=== PATIENT | male | born 1985 | race Caucasian/White ===

== ENCOUNTER 2018-06-02 14:03 | Outpatient (CLI) | payer OTHER, SELFPAY ==
--- NOTE | 2018-06-04 13:30 | ONE_ITS ---
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 ASSESSMENT Lumbar pain, radicular pattern. Evaluation to date includes - MRI, which does not show clear signs of root impingement at any level. There are some small bulges at multiple levels however. He also underwent a bone scan, which showed some uptake at the SI joints, which could be consistent with sacroiliitis. His nurse case fitter present today tells me that Rheumatology was consulted and they found this discomfort not to be consistent with a rheumatologic underlying condition. Further evaluation by Eddie Sims, who is a PA, at [facility], done the 14 of May, concurs that the MRI is not supportive of his degree and pattern of discomfort. He does raise a question of a mild chemical radiculopathy , which would be consistent with possible small annular tear. Recommendations however, were for conservative management. PLAN Recommendations by [facility] did include functional restorative program, ongoing PT, which was just resumed after several months of hiatus. He discusses the possibility of an FCE, and he plans to see him in followup after six weeks of PT. The patient himself is not satisfied with this approach. He asks for further intervention for his pain. We discussed several options, which were not satisfactory to him, but ultimately he agreed to a trial of gabapentin, this was prescribed at 300 mg at bedtime for the next three nights. He would then increase to 600 for three nights and then to a full 900 at bedtime thereafter. I will see him back for further evaluation on this. I also prescribed a TENS unit. He will continue PT three times weekly, currently in the pool. Continue ibuprofen and Tylenol as above. We discussed the possible use of a patch, but he declined that at this time as well. He would like to know what the next plan of action is. I did provide him information on benefits of functional restorative. He is given the education material associated with that program at this time for his consideration. Will need to obtain a Rheumatology consult for completeness of information. Would also consider referral to [facility]. I will see him back on June 17, 2018 for followup. Greater than 50% of this visit was spent in planning and coordination of care. HISTORY OF PRESENT ILLNESS Mr. Bustillo comes in today for evaluation of low back pain, which began suddenly on November 02 of this year. He explained he was just starting his workday when the inciting event occurred. 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 The box was on the floor and he lifted it to waist level. As he did so, he felt an instant central lumbar pain and also heard an audible pop. He said this felt like an explosion. He was able to walk out of the cooler, but pain did radiate down the back of both legs, worse on the right all the way to his toes. He explains that he had to hold onto the greenwood of the cooler so he would not fall. He describes what he believes to be intense spasms. He tried to walk off the discomfort, but could not. He reported the incident to his employer and was sent to [facility] in [place] for evaluation. He was treated with antiinflammatory medications, tramadol and cyclobenzaprine, none of which he found to be very helpful and the tramadol in fact caused headaches. An urgent MRI was obtained as there was concern that there may be a large central disk herniation with subsequent risk of cauda equina syndrome. He was also treated with a prednisone taper, and amitriptyline 25 mg at bedtime. The patient states today that he could not tolerate the amitriptyline due to side effects of sedation. Likewise, he did not find the prednisone taper to be beneficial. He did attend some physical therapy through [facility] and he was returned to work with limitations , but could not peform more than a few days. He continued to get physical therapy and was tried again to return to work a second time, but again could not tolerate it. Therefore, he has been out of work since October. He and his family moved from the [place] area to [place] to be near family so they would help with their young children. He had difficulty continuing physical therapy in [place] once he moved to [place]. He also awaited referrals to both rheumatology and the [facility] in [place], those have since both taken place. He is accompanied today by his nurse case fitter, and they tell me that he has just re-started physical therapy through [facility] where he is receiving pool therapy. Today, Mr. Bustillo says the pain is unchanged. He expresses great frustration at that. He says he has great difficulty sleeping due to pain. He says he falls asleep, but awakens at least every two hours whether in a recliner, or in bed. He quantifies his pain at 6/10 when it is the best, but it increases steadily throughout the day and night. It is translumbar pain worse on the right, radiating all the way down his leg to the toes. He described posterior pain in the right thigh as burning pain, but numbness in the right calf. Pain is worsened by all movements. He is using ibuprofen 600 mg every 8 hours and Tylenol 1000 mg t.i.d. neither of which he finds to be very helpful. REVIEW OF SYSTEMS He does have occasional shortness of breath related to asthma. No chest pain or palpitations reported. No loss of bladder or bowel control. No abdominal pain, nausea, vomiting or GI complaints. Tingling in the left calf as above. PAST MEDICAL HISTORY Asthma since childhood. Right wrist surgery in 2012. CURRENT MEDICATIONS Brio inhaler daily. He has an Albuterol inhaler for rescue, which he uses approximately once per week. He uses the ibuprofen 600 q. 8h as above. Tylenol 1000 t.i.d. as above. ALLERGIES He is allergic to codeine. SOCIAL HISTORY He is with children. His currently also recovering from an unspecified injury. HABITS Does not drink. No tobacco use. Does admit to smoking pot daily. OBJECTIVE GENERAL - This is a 32-year-old male who is alert, cooperative, clearly distressed. Posture is stooped, slouched. He ambulates slowly. Very guarded movements as he moves to and from the exam table, and as he ambulates down the amaya. VITAL SIGNS - Blood pressure 130/74. Pulse 84 and regular. He is 6 feet 1 inch tall. Weight is 215 pounds. HEENT - Head is normal. NECK - Neck is supple. CHEST - Heart regular rate and rhythm. LUNGS - Lungs are clear. ABDOMEN - Abdomen is soft, nontender. MUSCULOSKELETAL - There is no tenderness to direct palpation of the cervical spine. Mild tenderness in the distal thoracic, as well as the lumbar vertebrae. Some mild tenderness over the SI joint. DTR's, prepatellars are 1+ bilaterally. Achilles are 1+ bilaterally. Straight leg raises are very difficult for him to perform. He is able to extend each leg about 10 degrees. The left leg extension produces central lumbar discomfort. The right leg produces central and right- sided lumbar discomfort. Range of motion also very difficult. He can flex with fingertips reaching the tibial region. Right-sided lumbar pain is worse at that point in flexion. Extension very difficult for him to perform, but he does not seem to have the level of discomfort with extension that he did with flexion. Lateral bend also only a few degrees in each direction, also exacerbating his discomfort centrally. Rotation is also limited about 30 degrees in each direction. Everything aggravates his pain. He is not able to perform heel or toe walk due to pain. Sensory of lower extremities is intact.
== END 2018-06-02 14:04 ==
PROVIDERS: Visit Provider Nurse Practitioner Family
DX: M54.5 Low back pain (principal); M54.16 Radiculopathy, lumbar region; S39.012A Strain of muscle, fascia and tendon of lower back, initial encounter; X50.0XXA Overexertion from strenuous movement or load, initial encounter; Y99.0 Civilian activity done for income or pay
CPT/HCPCS: 99203

== ENCOUNTER 2018-06-17 08:07 | Outpatient (CLI) | payer OTHER, SELFPAY ==
--- NOTE | 2018-06-17 15:37 | ONE_ITS ---
DATE: June 17, 2018 Mr. Bustillo did not come in for his appointment which was scheduled this morning. His nurse case manag er has contacted him advising him to reschedule.
== END 2018-06-17 08:08 ==
PROVIDERS: Visit Provider Nurse Practitioner Family
DX: M54.5 Low back pain (principal); Z53.8 Procedure and treatment not carried out for other reasons

== ENCOUNTER → 2018-08-31 | Outpatient (CLI) | payer OTHER, SELFPAY ==
--- NOTE | 2018-08-31 06:00 | DI.RAD_ITS ---
SYMPTOMS/DIAGNOSIS: LUMBAR SPONDYLOSIS PAIN CLINIC LUMBAR SPINE: Fluoroscopy Time: 37.6 seconds/9.48 mGy Fluoroscopy was utilized by Dr. Smith during the performance of a lumbar medial branch block. Please refer to the procedure report for complete details.
[2018-08-31 09:50] VITALS: BP 138/81; PULSE 95; RESP 18; TEMP 37.6; O2SAT 100
[2018-08-31 10:41] VITALS: BP 132/77; PULSE 79; RESP 15; O2SAT 99
--- NOTE | 2018-08-31 10:41 | PDOC.PAIN ---
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 COMMENTS: LBP Patient was interviewed and the medical record reviewed. There were no medical, pharmacologic, radiographic or other structural contraindications to attempting fluoroscopically guided local anesthetic lumbar/sacral medial branch blocks. Risks and expected side effects as well as potential benefit of the procedure were reviewed and voiced concerns addressed. The printed consent form was signed and witnessed. Standard time-out procedure was performed. Patient was placed in the prone position on the fluoroscopy table and automated blood pressure cuff and pulse oximeter applied. The skin entry points for approaching the anatomic target points of the segmental medial branches of { bilateral L3,4,5} were identified with anfluoroscopy and marked. Following thorough Chlorhexadine preparation of the skin and draping and 1% lidocaine infiltration of the skin entry points and subcutaneous tissues, a 22 gauge spinal needle was placed under fluoroscopic guidance down on to the target point for each respective segmental medial branch.Position was confirmed in A/P, oblique and lateral views with 0.25ml of omnipaque 240. At each point .5ml 0.5% Bupivacaine was injected. Vital signs were stable throughout the procedure and were as recorded in the docflowsheet by the nursing staff. Follow up plans and appointments were discussed and was instructed to keep careful note of how the usual pain was modified by these injections. Specifically was asked to keep a pain diary for the next 24 hours using a numeric pain scale of 0-10 and report these results at the follow-up visit. Post procedure instruction was given as documented in the nursing documentation and having met discharge criteria. Patient was [facility] from the [facility]. Based on the medial branches blocked today, if the patient has adequate relief and we are able to proceed to radiofrequency ablation, the treatment should result in the denervation of the {bilateralL4-5,L5-S1 FACET JOINTS}. We would expect to denervate a total of {4} facets during the radiofrequency ablation. COMMENTS: pain went from / to 02/25. Pt planning on FRP at - If not meeting criteria for RF consider re-eval for SI joint inj. CC:
--- NOTE | 2018-08-31 10:46 | PDOC.PAIN_ITS ---
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 COMMENTS: LBP Patient was interviewed and the medical record reviewed. There were no medical , pharmacologic, radiographic or other structural contraindications to attempting fluoroscopically guided local anesthetic lumbar/sacral medial branch blocks. Risks and expected side effects as well as potential benefit of the procedure were reviewed and voiced concerns addressed. The printed consent form was signed and witnessed. Standard time-out procedure was performed. Patient was placed in the prone position on the fluoroscopy table and automated blood pressure cuff and pulse oximeter applied. The skin entry points for approaching the anatomic target points of the segmental medial branches of { bilateral L3,4,5} were identified with anfluoroscopy and marked. Following thorough Chlorhexadine preparation of the skin and draping and 1% lidocaine infiltration of the skin entry points and subcutaneous tissues, a 22 gauge spinal needle was placed under fluoroscopic guidance down on to the target point for each respective segmental medial branch.Position was confirmed in A/P, oblique and lateral views with 0.25ml of omnipaque 240. At each point .5ml 0.5% Bupivacaine was injected. Vital signs were stable throughout the procedure and were as recorded in the docflowsheet by the nursing staff. Follow up plans and appointments were discussed and was instructed to keep careful note of how the usual pain was modified by these injections. Specifically was asked to keep a pain diary for the next 24 hours using a numeric pain scale of 0-10 and report these results at the follow-up visit. Post procedure instruction was given as documented in the nursing documentation and having met discharge criteria. Patient was [facility] from the [facility]. Based on the medial branches blocked today, if the patient has adequate relief and we are able to proceed to radiofrequency ablation, the treatment should result in the denervation of the {bilateralL4-5,L5-S1 FACET JOINTS}. We would expect to denervate a total of {4} facets during the radiofrequency ablation. COMMENTS: pain went from / to 02/25. Pt planning on FRP at - If not meeting criteria for RF consider re-eval for SI joint inj. CC:
[2018-08-31] MEDS: Omnipaque 240 MG/ML 50 ML BTL IJ (10:57)
[2018-08-31] MEDS: Bupivacaine 0.5% Pres-Free 30 ML VIAL IJ (10:58)
== END ==
PROVIDERS: Visit Provider Anesthesiology Pain Medicine
DX: M54.5 Low back pain (principal); S39.012D Strain of muscle, fascia and tendon of lower back, subsequent encounter; X58.XXXD Exposure to other specified factors, subsequent encounter; G89.29 Other chronic pain
CPT/HCPCS: 64493; 64494; 64495; 72100; Q9967

== ENCOUNTER 2018-09-12 21:21 | Emergency (ER) | payer MEDICAID, SELFPAY ==
[2018-09-12 21:26] VITALS: BP 140/75; PULSE 111; RESP 24; TEMP 36.7; O2SAT 98
[2018-09-12 21:30] VITALS: RESP 24
--- NOTE | 2018-09-12 21:34 | W.ED.GENAD ---
Discharge Plan Disposition Patient Disposition: HOME Condition: Stable Discharge Details Chief Complaint: SOB Clinical Impression: Asthma exacerbation ED Provider: Mikey Reyes Home Meds and New Rx's Prescriptions: New prednisone 20 mg tablet 60 mg PO DAILY 4 Days Qty: 12 RF: 0 mometasone-formoterol [Dulera] 200-5 mcg/actuation HFA aerosol inhaler 2 puff IH BID Qty: 13 RF: 0 Continue omeprazole 20 mg capsule,delayed release(DR/EC) 20 mg PO DAILY Qty: 30 RF: 3 ibuprofen 600 mg tablet 600 mg PO Q6H PRNRF: 0 acetaminophen 500 mg capsule 1,000 mg PO Q6H PRNRF: 0 albuterol sulfate [Ventolin HFA] 60 PUFF/INH HFA aerosol inhaler 2 puff Inhalation Q4H PRNQty: 1 RF: 0 No Action mometasone-formoterol [Dulera] 100-5 mcg/actuation Hfa Aerosol Inhaler 2 puff Inhalation BID RF: 0 Discharge Instructions Instructions: Asthma (ED) Additional Instructions: IF you have worsening shortness of breath despite using your inhalers return to the emergency department Medical Decision Making 32 yo male with hx of asthma comes in with complaints of wheezing and shortness of breath for about a week. Denies chest pain or recent travel or immobilization. He states he has not had insurance so hasn't had inhalers recently. He has no fevers, dry cough. Has diffuse wheezing on exam consistent with asthma, will givfe steroids and nebulizers and reassess. Given well appearance and no fevers doubt pna and do not feel xray indicated. NO evidence of dvt or pleuritic chest pain and exam consistent with asthma exacerbation so doubt PE at this time pt feels much better after neb and steroids and has much improved lung sounds with only mild bilateral apical wheezing. Will send home with inhaler and spacer with albuterol and prescription for steroids. He states he was on dulera inhaler for controller and requests prescription for this which I will provide and will place him on direct care provider's list to see pcp within 2 weeks Differential Diagnosis asthma exacerbation, uri HPI General Mode of arrival: ambulatory. Date/Time Provider Initiated Documentation: 09/12/18 21:31. Limitations to Documentation: no limitations. Information obtained by: patient. History of Present Illness 32 year old M presents to the emergency department with the chief complaint of shortness of breath, described as moderate, with intensity rated at 4. Patient started experiencing this week(s) (1) and it has been constant. No relieving factors improve symptom(s), No exacerbating factors reported . Patient notes no other symptoms.. Patient did receive the following treatments prior to arrival, none Related Data Home Medications Medication Instructions Recorded Confirmed albuterol sulfate [Ventolin HFA] 2 puff INHALATION Q4H PRN #1 04/09/18 09/12/18 omeprazole 20 mg capsule,delayed 20 mg PO DAILY #30 cap 07/08/18 09/12/18 release acetaminophen 500 mg capsule 1,000 mg PO Q6H PRN cap 08/11/18 09/12/18 ibuprofen 600 mg tablet 600 mg PO Q6H PRN tab 08/11/18 09/12/18 mometasone-formoterol [Dulera] 2 puff IH BID #13 gm 09/12/18 mometasone-formoterol [Dulera] 2 puff INHALATION BID 09/12/18 09/12/18 prednisone 60 mg PO DAILY 4 Days #12 tab 09/12/18 Previous Rx's Medication Instructions Recorded albuterol sulfate [Ventolin HFA] 2 puff INHALATION Q4H PRN #1 04/09/18 omeprazole 20 mg capsule,delayed 20 mg PO DAILY #30 cap 07/08/18 release mometasone-formoterol [Dulera] 2 puff IH BID #13 gm 09/12/18 prednisone 60 mg PO DAILY 4 Days #12 tab 09/12/18 Allergies Allergy/AdvReac Type Severity Reaction Status Date / Time codeine Allergy Swelling/Ed Verified 09/12/18 21:28 [From Tylenol-Codeine #3] linda gabapentin AdvReac Intermediate Headaches Unverified 09/12/18 21:28 pregabalin [From Lyrica] AdvReac Intermediate Headaches Unverified 09/12/18 21:28 General Stated Complaint: SOB CHI: 3 Review of Systems Review of Systems All systems reviewed & are unremarkable except as noted in HPI and below Constitutional Denies chills, Denies fever(s) and Denies weakness Cardiovascular Denies chest pain Gastrointestinal Denies abdominal pain, Denies nausea and Denies vomiting Genitourinary Denies dysuria Musculoskeletal Denies joint swelling Integumentary/Breasts Denies rash Neurologic Denies weakness Psychiatric Denies depression Exam Const General: no acute distress Orientation: alert HENMT Head: normal to inspection Ears: external ears normal General nose exam: external nose normal Mouth: moist mucous membranes Eyes General: appearance normal, both eyes and all related structures Neck Neck: normal visual inspection Resp Effort & Inspection: normal respiratory effort, able to speak in complete sentences and audible wheezes Cardio Jugular venous pressure: no JVD Rate: tachycardic Rhythm: regular rhythm Heart Sounds: no murmurs Skin General skin exam: no rashes or lesions noted Neuro General: alert and oriented x3 Extrem General: normal to inspection Psych Mental Status: mental status grossly normal Course Vital Signs Temperature 36.7 C 09/12/18 21:26 Pulse 111 H 09/12/18 21:26 Respiratory Rate 24 09/12/18 21:26 Blood Pressure 140/75 09/12/18 21:26 Pulse Oximetry 98 09/12/18 21:26 Temperature 36.7 C 09/12/18 21:26 Temperature Source Temporal Artery Scan 09/12/18 21:26 Pulse 111 H 09/12/18 21:26 Respiratory Rate 24 09/12/18 21:30 Respiratory Effort 09/12/18 21:30 Respiratory Depth Normal 09/12/18 21:30 Respiratory Pattern Normal 09/12/18 21:30 Blood Pressure 140/75 09/12/18 21:26 Blood Pressure Position Sitting 09/12/18 21:26 Pulse Oximetry 98 09/12/18 21:26 Oxygen Delivery Method Room Air 09/12/18 21:26 Oxygen Flow Rate 0 09/12/18 21:26 Pain Level 4 09/12/18 21:26
--- NOTE | 2018-09-12 21:37 | ED.GENADUL_ITS ---
Discharge Plan Disposition Patient Disposition: HOME Condition: Stable Discharge Details Chief Complaint: SOB Clinical Impression: Asthma exacerbation ED Provider: Mikey Reyes Home Meds and New Rx's Prescriptions: New prednisone 20 mg tablet 60 mg PO DAILY 4 Days Qty: 12 RF: 0 mometasone-formoterol [Dulera] 200-5 mcg/actuation HFA aerosol inhaler 2 puff IH BID Qty: 13 RF: 0 Continue omeprazole 20 mg capsule,delayed release(DR/EC) 20 mg PO DAILY Qty: 30 RF: 3 ibuprofen 600 mg tablet 600 mg PO Q6H PRNRF: 0 acetaminophen 500 mg capsule 1,000 mg PO Q6H PRNRF: 0 albuterol sulfate [Ventolin HFA] 60 PUFF/INH HFA aerosol inhaler 2 puff Inhalation Q4H PRNQty: 1 RF: 0 No Action mometasone-formoterol [Dulera] 100-5 mcg/actuation Hfa Aerosol Inhaler 2 puff Inhalation BID RF: 0 Discharge Instructions Instructions: Asthma (ED) Additional Instructions: IF you have worsening shortness of breath despite using your inhalers return to the emergency department Medical Decision Making 32 yo male with hx of asthma comes in with complaints of wheezing and shortness of breath for about a week. Denies chest pain or recent travel or immobilization. He states he has not had insurance so hasn't had inhalers recently. He has no fevers, dry cough. Has diffuse wheezing on exam consistent with asthma, will givfe steroids and nebulizers and reassess. Given well appearance and no fevers doubt pna and do not feel xray indicated. NO evidence of dvt or pleuritic chest pain and exam consistent with asthma exacerbation so doubt PE at this time pt feels much better after neb and steroids and has much improved lung sounds with only mild bilateral apical wheezing. Will send home with inhaler and spacer with albuterol and prescription for steroids. 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 Date/Time Provider Initiated Documentation: 09/12/18 21:31 . Limitations to Documentation: no limitations . Information obtained by: patient . History of Present Illness 32 year old M presents to the emergency department with the chief complaint of shortness of breath, described as moderate, with intensity rated at 4. Patient started experiencing this week(s) (1) and it has been constant. No relieving factors improve symptom(s), No exacerbating factors reported . Patient notes no other symptoms.. Patient did receive the following treatments prior to arrival, none Related Data Home Medications Medication Instructions Recorded Confirmed albuterol sulfate [Ventolin HFA] 2 puff INHALATION Q4H PRN #1 04/09/18 09/12/18 omeprazole 20 mg capsule,delayed 20 mg PO DAILY #30 cap 07/08/18 09/12/18 release acetaminophen 500 mg capsule 1,000 mg PO Q6H PRN cap 08/11/18 09/12/18 ibuprofen 600 mg tablet 600 mg PO Q6H PRN tab 08/11/18 09/12/18 mometasone-formoterol [Dulera] 2 puff IH BID #13 gm 09/12/18 mometasone-formoterol [Dulera] 2 puff INHALATION BID 09/12/18 09/12/18 prednisone 60 mg PO DAILY 4 Days #12 tab 09/12/18 Previous Rx's Medication Instructions Recorded albuterol sulfate [Ventolin HFA] 2 puff INHALATION Q4H PRN #1 04/09/18 omeprazole 20 mg capsule,delayed 20 mg PO DAILY #30 cap 07/08/18 release mometasone-formoterol [Dulera] 2 puff IH BID #13 gm 09/12/18 prednisone 60 mg PO DAILY 4 Days #12 tab 09/12/18 Allergies Allergy/AdvReac Type Severity Reaction Status Date / Time codeine Allergy Swelling/Ed Verified 09/12/18 21:28 [From Tylenol-Codeine #3] linda gabapentin AdvReac Intermediate Headaches Unverified 09/12/18 21:28 pregabalin [From Lyrica] AdvReac Intermediate Headaches Unverified 09/12/18 21: 28 General Stated Complaint: SOB CHI: 3 Review of Systems Review of Systems All systems reviewed & are unremarkable except as noted in HPI and below Constitutional Denies chills, Denies fever(s) and Denies weakness Cardiovascular Denies chest pain Gastrointestinal Denies abdominal pain, Denies nausea and Denies vomiting Genitourinary Denies dysuria Musculoskeletal Denies joint swelling Integumentary/Breasts Denies rash Neurologic Denies weakness Psychiatric Denies depression Exam Const General: no acute distress Orientation: alert HENMT Head: normal to inspection Ears: external ears normal General nose exam: external nose normal Mouth: moist mucous membranes Eyes General: appearance normal, both eyes and all related structures Neck Neck: normal visual inspection Resp Effort & Inspection: normal respiratory effort, able to speak in complete sentences and audible wheezes Cardio Jugular venous pressure: no JVD Rate: tachycardic Rhythm: regular rhythm Heart Sounds: no murmurs Skin General skin exam: no rashes or lesions noted Neuro General: alert and oriented x3 Extrem General: normal to inspection Psych Mental Status: mental status grossly normal Course Vital Signs Temperature 36.7 C 09/12/18 21:26 Pulse 111 H 09/12/18 21:26 Respiratory Rate 24 09/12/18 21:26 Blood Pressure 140/75 09/12/18 21:26 Pulse Oximetry 98 09/12/18 21:26 Temperature 36.7 C 09/12/18 21:26 Temperature Source Temporal Artery Scan 09/12/18 21:26 Pulse 111 H 09/12/18 21:26 Respiratory Rate 24 09/12/18 21:30 Respiratory Effort 09/12/18 21:30 Respiratory Depth Normal 09/12/18 21:30 Respiratory Pattern Normal 09/12/18 21:30 Blood Pressure 140/75 09/12/18 21:26 Blood Pressure Position Sitting 09/12/18 21:26 Pulse Oximetry 98 09/12/18 21:26 Oxygen Delivery Method Room Air 09/12/18 21:26 Oxygen Flow Rate 0 09/12/18 21:26 Pain Level 4 09/12/18 21:26
[2018-09-12] MEDS: Albuterol/Ipratropium 3 ML UPD VIAL UPD (21:44)
[2018-09-12] MEDS: Albuterol 2.5 MG/3 ML INH SOLN VIAL UPD (21:44)
[2018-09-12] MEDS: predniSONE 20 MG TAB (21:45)
[2018-09-12 22:21] VITALS: BP 142/91; PULSE 127; RESP 24; O2SAT 99
[2018-09-12] MEDS: Albuterol HFA 8 GM 60 PUFF INH IH (22:21)
== END 2018-09-12 22:30 | disposition home or self-care (01) ==
PROVIDERS: Emergency Provider Emergency Medicine
DX: J45.901 Unspecified asthma with (acute) exacerbation (principal); R06.02 Shortness of breath
CPT/HCPCS: 94640; 99284; J7512; J7613; J7620

== ENCOUNTER 2018-09-24 18:16 | Emergency (ER) | payer MEDICAID, SELFPAY ==
[2018-09-24 18:20] VITALS: BP 140/73; PULSE 80; RESP 18; TEMP 36.8; O2SAT 98
--- NOTE | 2018-09-24 18:37 | W.ED.GENAD ---
Discharge Plan Disposition Patient Disposition: HOME Discharge Details Chief Complaint: SOB Clinical Impression: Acute asthma exacerbation, Bronchitis Primary Care Provider: Lon Garduno ED Provider: Eliazar Zhu Home Meds and New Rx's Prescriptions: New prednisone 20 mg tablet 40 mg PO DAILY Qty: 8 RF: 0 albuterol sulfate 90 mcg/actuation HFA aerosol inhaler 2 puff IH Q4H PRN (Reason: shortness of breath or wheezing) Qty: 8.5 RF: 0 doxycycline hyclate 100 mg tablet 100 mg PO BID Qty: 13 RF: 0 Continue omeprazole 20 mg capsule,delayed release(DR/EC) 20 mg PO DAILY Qty: 30 RF: 3 ibuprofen 600 mg tablet 600 mg PO Q6H PRNRF: 0 acetaminophen 500 mg capsule 1,000 mg PO Q6H PRNRF: 0 mometasone-formoterol [Dulera] 200-5 mcg/actuation HFA aerosol inhaler 2 puff IH BID Qty: 13 RF: 0 Discontinued albuterol sulfate [Ventolin HFA] 60 PUFF/INH HFA aerosol inhaler 2 puff Inhalation Q4H PRNQty: 1 RF: 0 mometasone-formoterol [Dulera] 100-5 mcg/actuation Hfa Aerosol Inhaler 2 puff Inhalation BID RF: 0 Discharge Instructions Instructions: Albuterol (By breathing), Asthma (ED), Acute Bronchitis (ED) Additional Instructions: Please use prednisone, antibiotic and inhaler as prescribed. Be sure to use your spacer. Please contact your primary care physician to arrange follow-up. Return to the ER for any worsening or new concerning symptoms. Referrals: Lon Garduno [Primary Care Provider] - Medical Decision Making 18:45 --32-year-old male with history of asthma presents with shortness of breath, wheeze, cough persistent for weeks. Patient is saturating well with no tachypnea. Patient was seen here on 09/12/2018 for asthma exacerbation and treated with a course of prednisone which he completed a few days ago. Concern for recurrent asthma exacerbation in the setting of likely pneumonia versus bronchitis. Obtain chest x-ray. I will give DuoNeb treatments x3 as well as prednisone 60 mg. 19:40 -- cxr nondiagnostic. Plan to treat with doxycycline for clinical PNA. 20:05 -- Patient reassessed and notes significant improvement after neb treatment. Discussed treatment options with patient. Disposition decision was made weighing the risks and benefits of hospitalization versus outpatient treatment, the risk for further decompensation, and the patient's wishes. Patient specifically noted that he feels improved and safe for discharge with albuterol inhaler. The patient was stable and requested discharge. Prior to discharge, my usual and customary return precautions were reviewed with the patient- this included follow-up instructions and reason to return to the emergency department if condition worsens, does not improve as expected, or other new concerns arise. Imaging Data Radiologic Study: Imaging: X-Ray (cxr) Radiologist's impression: Findings: Lungs: No airspace consolidation. Small stable nodular is projecting over the lung bases compatible with nipple shadows. Pleural space: No pleural effusion. No pneumothorax. Heart/Mediastinum: No cardiomegaly. Bones/joints: No acute fracture. Impression: No acute cardiopulmonary pathology. Dictated and Authenticated by: Diane Burrell MD. HPI General Mode of arrival: ambulatory. Date/Time Provider Initiated Documentation: 09/24/18 18:33. Limitations to Documentation: no limitations. Information obtained by: patient. HPI Narrative: 32-year-old male with history of asthma here with chief complaint of shortness of breath. Shortness of breath is moderate. He has associated wheezing and cough. Patient notes he has had respiratory tract infection symptoms since late July. Infectious symptoms seem to be waxing waning but more severe recently. Patient states he has a productive cough. Cough is productive of brown and yellow sputum. He has no associated fever. No chest pain. Of note, patient was seen here on 09/12/2018 and diagnosed with acute asthma exacerbation. He was started on prednisone 60 mg for a 5-day course as well as Dulera. Patient notes that symptoms did improve but then returned recently. He continued to have cough through his treatment. Related Data Home Medications Medication Instructions Recorded Confirmed omeprazole 20 mg capsule,delayed 20 mg PO DAILY #30 cap 07/08/18 09/24/18 release acetaminophen 500 mg capsule 1,000 mg PO Q6H PRN cap 08/11/18 09/24/18 ibuprofen 600 mg tablet 600 mg PO Q6H PRN tab 08/11/18 09/24/18 mometasone-formoterol [Dulera] 2 puff IH BID #13 gm 09/12/18 09/24/18 albuterol sulfate 2 puff IH Q4H PRN #8.5 gm 09/24/18 doxycycline hyclate 100 mg PO BID #13 tab 09/24/18 prednisone 40 mg PO DAILY #8 tab 09/24/18 Previous Rx's Medication Instructions Recorded omeprazole 20 mg capsule,delayed 20 mg PO DAILY #30 cap 07/08/18 release mometasone-formoterol [Dulera] 2 puff IH BID #13 gm 09/12/18 albuterol sulfate 2 puff IH Q4H PRN #8.5 gm 09/24/18 doxycycline hyclate 100 mg PO BID #13 tab 09/24/18 prednisone 40 mg PO DAILY #8 tab 09/24/18 Allergies Allergy/AdvReac Type Severity Reaction Status Date / Time codeine Allergy Swelling/Ed Verified 09/24/18 18:25 [From Tylenol-Codeine #3] linda gabapentin AdvReac Intermediate Headaches Unverified 09/24/18 18:25 pregabalin [From Lyrica] AdvReac Intermediate Headaches Unverified 09/24/18 18:25 General Stated Complaint: SOB CHI: 3 Review of Systems Review of Systems All systems reviewed & are unremarkable except as noted in HPI and below Constitutional Denies fever(s) Cardiovascular Reports dyspnea Respiratory Reports cough and Reports dyspnea PFSH Facial cellulitis (Acute) Asthma (Chronic) Right wrist injury (Resolved) Medical History Facial cellulitis (Acute) Asthma (Chronic) Right wrist injury (Resolved) Social History household members: spouse and children lives independently: Yes current occupational status: employed current occupation: [employer] Smoking/Tobacco Use Status: Never alcohol intake: never substance use type: marijuana Social History household members: spouse and children lives independently: Yes current occupational status: employed current occupation: [employer] Smoking/Tobacco Use Status: Never alcohol intake: never substance use type: marijuana Exam Const General: cooperative and no acute distress HENMT Head: normocephalic and atraumatic Mouth: moist mucous membranes Eyes Conjunctivae: normal conjunctivae Sclera: normal sclerae Neck Neck: trachea midline and supple Resp Effort & Inspection: cough Auscultation: rhonchi and wheezes expiratory wheezes and lower bilaterally Cardio Jugular venous pressure: no JVD Rate: regular rate and not tachycardic Rhythm: regular rhythm GI Palpation: soft, not firm, no guarding, no masses, not rigid and nontender Skin General skin exam: no rashes or lesions noted Neuro General: alert, awake, oriented x3 and tone normal Extrem General: no edema Psych Appearance: grossly normal Mental Status: mental status grossly normal Speech and Movement: speech and movement normal Course Vital Signs Temperature 36.8 C 09/24/18 18:20 Pulse 80 09/24/18 18:20 Respiratory Rate 18 09/24/18 18:20 Blood Pressure 140/73 09/24/18 18:20 Pulse Oximetry 98 09/24/18 18:20 Temperature 36.8 C 09/24/18 18:20 Temperature Source Temporal Artery Scan 09/24/18 18:20 Pulse 80 09/24/18 18:20 Respiratory Rate 18 09/24/18 18:20 Respiratory Effort Nasal Flaring 09/24/18 18:24 Blood Pressure 140/73 09/24/18 18:20 Blood Pressure Position Sitting 09/24/18 18:20 Pulse Oximetry 98 09/24/18 18:20 Oxygen Delivery Method Room Air 09/24/18 18:20 Oxygen Flow Rate 0 09/24/18 18:20 Pain Level 6 09/24/18 18:20
[2018-09-24 18:41] VITALS: RESP 4
[2018-09-24] MEDS: Albuterol/Ipratropium 3 ML UPD VIAL (18:41)
[2018-09-24] MEDS: predniSONE 20 MG TAB 60 MG PO (18:41)
[2018-09-24] MEDS: Albuterol/Ipratropium 3 ML UPD VIAL UPD ×2 (18:42)
[2018-09-24 18:45] VITALS: RESP 24
--- NOTE | 2018-09-24 19:17 | DI.RAD_ITS ---
SYMPTOM/DIAGNOSIS: PRODUCTIVE COUGH, WHEEZE PA AND LATERAL CHEST: Comparison is made with March. The cardiac and mediastinal contours have a normal appearance. The lungs are well inflated and clear. No infiltrate, effusion or pneumothorax is seen. IMPRESSION: Negative chest x-ray
--- NOTE | 2018-09-24 19:26 | DI.VRAD_ITS ---
EXAM: XR Chest, 2 Views EXAM DATE/TIME: 09/24/2018 6:37 PM CLINICAL HISTORY: 32 years old, male; Pain; Chest wall pain; Patient HX: Productive cough, wheeze, pain left side of chest lateral side. TECHNIQUE: XR of the chest, 2 views. COMPARISON: CR CHEST 2 VIEWS PA,LAT 04/06/2018 2:46 PM FINDINGS: Lungs: No airspace consolidation. Small stable nodular is projecting over the lung bases compatible with nipple shadows. Pleural space: No pleural effusion. No pneumothorax. Heart/Mediastinum: No cardiomegaly. Bones/joints: No acute fracture. IMPRESSION: No acute cardiopulmonary pathology. Dictated and Authenticated by: Diane Burrell MD. Ordering:ROXANNA RUTHERFORD MD
[2018-09-24] MEDS: Albuterol HFA 8 GM 60 PUFF INH IH (20:11)
[2018-09-24] MEDS: Doxycycline Hyclate 100 MG CAP PO (20:11)
[2018-09-24 20:23] VITALS: BP 134/72; PULSE 123; RESP 20; O2SAT 97
== END 2018-09-24 20:26 | disposition home or self-care (01) ==
PROVIDERS: Emergency Provider Student in an Organized Health Care Education/Training Program; PCP Family Medicine
DX: J44.0 Chronic obstructive pulmonary disease with (acute) lower respiratory infection (principal); J20.9 Acute bronchitis, unspecified; J45.909 Unspecified asthma, uncomplicated
CPT/HCPCS: 94640; 99284; 71046; J7512; J7620

== ENCOUNTER 2018-09-25 13:53 | Emergency (ER) | payer MEDICAID, SELFPAY ==
[2018-09-25] VITALS (13 sets, daily range): BP systolic 117–161; BP diastolic 58–124; PULSE 93–125; RESP 5–22; TEMP 37.2; O2SAT 97–100
[2018-09-25] MEDS: Albuterol/Ipratropium 3 ML UPD VIAL (14:03)
--- NOTE | 2018-09-25 14:04 | W.ED.GENAD ---
Discharge Plan Disposition Patient Disposition: HOME Condition: Improving Discharge Details Chief Complaint: RespSymp Clinical Impression: Acute asthma exacerbation Primary Care Provider: Lon Garduno ED Provider: Karen Newton Home Meds and New Rx's Prescriptions: New albuterol sulfate 2.5 mg /3 mL (0.083 %) solution for nebulization 2.5 mg IH Q4H PRN (Reason: shortness of breath or wheezing) Qty: 75 RF: 0 Continue omeprazole 20 mg capsule,delayed release(DR/EC) 20 mg PO DAILY Qty: 30 RF: 3 ibuprofen 600 mg tablet 600 mg PO Q6H PRNRF: 0 acetaminophen 500 mg capsule 1,000 mg PO Q6H PRNRF: 0 mometasone-formoterol [Dulera] 200-5 mcg/actuation HFA aerosol inhaler 2 puff IH BID Qty: 13 RF: 0 prednisone 20 mg tablet 40 mg PO DAILY Qty: 8 RF: 0 albuterol sulfate 90 mcg/actuation HFA aerosol inhaler 2 puff IH Q4H PRN (Reason: shortness of breath or wheezing) Qty: 8.5 RF: 0 doxycycline hyclate 100 mg tablet 100 mg PO BID Qty: 13 RF: 0 Discharge Instructions Instructions: Asthma (ED) Additional Instructions: Take the antibiotics and steroids until finished. Use your albuterol inhaler and nebulizer as needed and directed. If you have a difficulty obtaining a nebulizer machine, you can call the hospital care management for any assistance. Follow-up with your scheduled appointment with your primary care doctor next month. Return immediately to the emergency department with any worsening or new concerning symptoms. Discharge Data Discharge Date/Time-TO BE ENTERED AT DEPARTURE: 09/25/18 15:19 Discharge Physician: Karen Newton Medical Decision Making 32-year-old male with history of asthma who presents with shortness of breath and wheezing worse this morning. Patient was seen here yesterday for an acute asthma exacerbation and sent home with prednisone and doxycycline. He had been recommended for admission but declined. Heart rate 95. Normal respiratory rate and oxygen saturation. Afebrile. Patient appears nontoxic. He is able to speak in full sentences but has frequent coughing. Diminished breath sounds and wheezing throughout. No accessory muscle use. Will give a DuoNeb and a dose of oral steroids and reassess. 1415 -- pt still with some wheezing and sob, given another 5mg neb. 1510 --patient feeling much better and is requesting to go home. Normal respiratory rate and oxygen saturation 97% on RA. Breath sounds clear and no further wheezing. No accessory muscle use. Patient able to speak in full sentences. Patient states he mainly needed a nebulizer machine for home. Discussed with respiratory and they will bring down a nebulizer machine. Written prescription given for nebulizer machine to rent through [employer]. There was another prescription for nebulizer machine given if needed to buy one for home. Patient has a follow-up appointment with his primary care doctor on October 27. He is instructed to finish the steroids and antibiotics as directed and use his albuterol inhaler and nebulizer as needed. He is instructed to return immediately to the emergency department if worse. HPI General Mode of arrival: ambulatory. Date/Time Provider Initiated Documentation: 09/25/18 13:56. Limitations to Documentation: no limitations. Information obtained by: patient. HPI Narrative: Patient is a 32-year-old male with a history of asthma who presents with cough and shortness of breath for the past 2 days. Patient was seen here yesterday for same complaint and started on oral steroids and antibiotics. He had been recommended for admission but declined and rather wanted to go home. Patient presents today with worsening shortness of breath and cough. Patient states symptoms are slightly improved just before arrival to the ED. Patient denies any known fever. Patient states he used his inhaler at home before coming in. Patient states he did not yet take his oral steroids. Patient denies any history of intubations. Related Data Home Medications Medication Instructions Recorded Confirmed omeprazole 20 mg capsule,delayed 20 mg PO DAILY #30 cap 07/08/18 09/25/18 release acetaminophen 500 mg capsule 1,000 mg PO Q6H PRN cap 08/11/18 09/25/18 ibuprofen 600 mg tablet 600 mg PO Q6H PRN tab 08/11/18 09/25/18 mometasone-formoterol [Dulera] 2 puff IH BID #13 gm 09/12/18 09/25/18 albuterol sulfate 2 puff IH Q4H PRN #8.5 gm 09/24/18 09/25/18 doxycycline hyclate 100 mg PO BID #13 tab 09/24/18 09/25/18 prednisone 40 mg PO DAILY #8 tab 09/24/18 09/25/18 albuterol sulfate 2.5 mg IH Q4H PRN #75 ml 09/25/18 Previous Rx's Medication Instructions Recorded omeprazole 20 mg capsule,delayed 20 mg PO DAILY #30 cap 07/08/18 release mometasone-formoterol [Dulera] 2 puff IH BID #13 gm 09/12/18 albuterol sulfate 2 puff IH Q4H PRN #8.5 gm 09/24/18 doxycycline hyclate 100 mg PO BID #13 tab 09/24/18 prednisone 40 mg PO DAILY #8 tab 09/24/18 albuterol sulfate 2.5 mg IH Q4H PRN #75 ml 09/25/18 Allergies Allergy/AdvReac Type Severity Reaction Status Date / Time codeine Allergy Swelling/Ed Verified 09/25/18 14:05 [From Tylenol-Codeine #3] linda gabapentin AdvReac Intermediate Headaches Unverified 09/25/18 14:05 pregabalin [From Lyrica] AdvReac Intermediate Headaches Unverified 09/25/18 14:05 General Stated Complaint: RespSymp CHI: 3 Review of Systems Review of Systems All systems reviewed & are unremarkable except as noted in HPI and below Constitutional Reports as per HPI, Denies chills and Denies fever(s) Eyes Denies blurry vision ENT Denies dizziness, Denies sore throat and Denies throat swelling Cardiovascular Denies chest pain and Reports dyspnea Respiratory Reports cough, Reports dyspnea and Reports wheezing Gastrointestinal Denies abdominal pain, Denies diarrhea and Denies vomiting Genitourinary Denies hematuria and Denies dysuria Musculoskeletal Denies back pain and Denies numbness Integumentary/Breasts Denies lesions and Denies rash Neurologic Denies dizziness and Denies numbness Allergic/Immunologic Denies throat swelling and Reports wheezing PFSH Facial cellulitis (Acute) Asthma (Chronic) Right wrist injury (Resolved) S/P wrist surgery (Acute) Medical History Facial cellulitis (Acute) Asthma (Chronic) Right wrist injury (Resolved) Social History household members: spouse and children lives independently: Yes current occupational status: employed current occupation: [employer] Smoking/Tobacco Use Status: Never alcohol intake: never substance use type: marijuana Surgical History S/P wrist surgery (Acute) Social History household members: spouse and children lives independently: Yes current occupational status: employed current occupation: [employer] Smoking/Tobacco Use Status: Never alcohol intake: never substance use type: marijuana Exam Const General: cooperative and healthy appearing Orientation: alert and awake HENMT Head: normal to inspection Ears: hearing grossly normal bilaterally and external ears normal General nose exam: external nose normal Face and sinus: normal facial exam Eyes General: appearance normal, both eyes and all related structures Eyelids: eyelids normal EOM: EOM intact bilaterally Neck Neck: normal visual inspection Lymphatic: no lymphadenopathy noted Chest Chest: normal inspection of the chest Resp Effort & Inspection: normal respiratory effort and able to speak in complete sentences Auscultation: diminished lung sounds bilaterally throughout and wheezes scattered wheezes Cardio Rate: regular rate Rhythm: regular rhythm GI Inspection: normal to inspection Palpation: soft, not firm, no guarding, no hepatosplenomegaly, no masses and nontender Auscultation: normal bowel sounds Skin General skin exam: no rashes or lesions noted Neuro General: alert and awake Cognition: normal cognition Speech: speech normal Gait: normal gait Motor: muscle tone normal throughout Sensory Exam: no sensory deficits noted Extrem General: normal to inspection, full ROM, normal capillary refill and no edema Psych Appearance: grossly normal Mental Status: mental status grossly normal Speech and Movement: speech and movement normal Affect: normal affect Thought Process: normal Course Vital Signs Temperature 99.0 F 09/25/18 13:56 Pulse 95 H 09/25/18 13:56 Respiratory Rate 22 09/25/18 13:56 Blood Pressure 155/86 H 09/25/18 13:56 Pulse Oximetry 98 09/25/18 13:56 Temperature 99.0 F 09/25/18 13:56 Temperature Source Skin 09/25/18 13:56 Pulse 95 H 09/25/18 13:56 Respiratory Rate 22 09/25/18 13:56 Respiratory Effort 09/25/18 14:04 Blood Pressure 155/86 H 09/25/18 13:56 Blood Pressure Position Sitting 09/25/18 13:56 Pulse Oximetry 98 09/25/18 13:56 Pain Level 3 09/25/18 13:56
[2018-09-25] MEDS: predniSONE 20 MG TAB 60 MG PO (14:09)
[2018-09-25] MEDS: Albuterol 2.5 MG/3 ML INH SOLN VIAL 5 MG UPD (14:20)
--- NOTE | 2018-10-06 15:11 | NUR.NOTE ---
Faxed to [facility] the provider note. June Holcomb.
== END 2018-09-25 15:19 | disposition home or self-care (01) ==
PROVIDERS: Emergency Provider Physician Assistant; PCP Family Medicine
DX: J45.901 Unspecified asthma with (acute) exacerbation (principal)
CPT/HCPCS: 94640; 99284; J7512; J7613; J7620

== ENCOUNTER 2018-09-30 13:22 | Outpatient (REF) | payer MEDICAID, SELFPAY ==
[2018-09-30 13:53] LABS: ALT 39 U/L (12-78); AST 18 U/L (15-37); Albumin 3.7 g/dL (3.4-5.0); Alkaline Phosphatase 68 U/L (46-116); Anion Gap 9.8 mmol/L (3-11); BUN 17 mg/dL (7-18); Bilirubin, Total 0.5 mg/dL (0.2-1.0); CO2 29.2 mmol/L (21.0-32.0); Calcium 9.4 mg/dL (8.5-10.1); Chloride 104 mmol/L (98-107); Glucose 81 mg/dL (70-100); Potassium 3.7 mmol/L (3.5-5.1); Sodium 143 mmol/L (136-145); Total Protein 7.1 g/dL (6.4-8.2)
[2018-09-30 14:04] LABS: Abs Immature Grans 0.17 k/cumm (0.0-0.09); Absolute Monocyte Count 1.46 k/cumm (0.11-0.7); Basophils % 0.4; Eosinophils % 1.3; HCT 41.5 % (40.0-50.0); HGB 13.7 g/dL (13.5-17.5); Immature Grans % 0.7; Lymphocytes % 25.1; Mean Corpuscular Hemoglobin 30.6 pg (27.0-33.0); Mean Corpuscular Volume 92.8 fL (80-95); Mean Platelet Volume 9.9 fL (8.0-11.0); Monocytes % 5.9; Neutrophils % 66.6; Platelet Count 365 x1000/uL (130-400); RBC 4.47 m/cumm (4.50-6.00); RBC Distribution Width 14.5 % (11.8-14.1); White Blood Cell Count 24.72 k/cumm (4.4-10.8)
[2018-09-30 14:07] LABS: Absolute Eosinophil Count 0.32 k/cumm (0.0-0.7); Absolute Neutrophil Count 16.46 k/cumm (1.2-6.7)
[2018-09-30 14:31] LABS: Diff Comment Diff Reviewed; RBC Morphology Normal
== END 2018-09-30 13:42 ==
LOC: NCHCN 13:22
PROVIDERS: PCP Family Medicine; Visit Provider Nurse Practitioner Family
DX: N50.819 Testicular pain, unspecified (principal); R10.12 Left upper quadrant pain
CPT/HCPCS: 80053; 85025

== ENCOUNTER 2018-09-30 17:05 | Outpatient (CLI) | payer MEDICAID, SELFPAY ==
--- NOTE | 2018-09-30 11:00 | DI.US_ITS ---
SYMPTOMS/DIAGNOSIS: TESTICULAR PAIN, N50.819 TESTICULAR ULTRASOUND: Routine examination was performed. The right testicle measures 5.8 x 3.7 x 3.0 cm. The testicle is homogeneous. No intratesticular mass is seen. There is normal blood flow to the right testicle. No evidence of torsion is present. The right epididymis has a normal appearance. The left testicle measures 5.4 x 3.8 x 3.1 cm. It is homogeneous. No intratesticular mass is seen. There is normal blood flow to the left testicle. No evidence of torsion is seen. The left epididymis has a normal appearance. There is no evidence of a varicocele. IMPRESSION: Normal testicular ultrasound.
== END 2018-09-30 17:25 ==
PROVIDERS: PCP Family Medicine; Visit Provider Student in an Organized Health Care Education/Training Program
DX: N50.819 Testicular pain, unspecified (principal)
CPT/HCPCS: 76870

== ENCOUNTER 2018-10-04 01:20 | Outpatient (CLI) | payer MEDICAID, SELFPAY ==
--- NOTE | 2018-10-04 07:36 | DI.US_ITS ---
SYMPTOMS/DIAGNOSIS: LUQ ABD PAIN, R10.12 ABDOMINAL ULTRASOUND: Routine examination was performed. The aorta is unremarkable. The IVC can not be visualized due to overlying bowel. The liver has a normal appearance sonographically. The gallbladder and bile ducts are unremarkable. The pancreas is not well seen due to overlying bowel. The spleen and kidneys are unremarkable. IMPRESSION: 1. Somewhat limited examination due to overlying bowel. 2. Otherwise negative abdominal ultrasound.
== END 2018-10-04 01:40 ==
PROVIDERS: PCP Family Medicine; Visit Provider Student in an Organized Health Care Education/Training Program
DX: R10.12 Left upper quadrant pain (principal)
CPT/HCPCS: 76700

== ENCOUNTER 2018-10-14 13:21 | Outpatient (REF) | payer MEDICAID, SELFPAY ==
[2018-10-15 13:30] LABS: Chlamydia Result Negative; GC Result Negative; Specimen Description URINE
== END 2018-10-14 13:41 ==
LOC: NCHCN 13:21
PROVIDERS: PCP Family Medicine; Visit Provider Nurse Practitioner Family
DX: N50.819 Testicular pain, unspecified (principal); Z11.3 Encounter for screening for infections with a predominantly sexual mode of transmission
CPT/HCPCS: 87491; 87591; 85025; 87086

== ENCOUNTER 2018-10-20 11:43 | Outpatient (REF) | payer MEDICAID, SELFPAY ==
[2018-10-20 13:25] LABS: Abs Immature Grans 0.03 k/cumm (0.0-0.09); Absolute Basophil Count 0.06 k/cumm (0.0-0.2); Absolute Eosinophil Count 0.35 k/cumm (0.0-0.7); Absolute Lymphocyte Count 2.72 k/cumm (1.2-3.4); Absolute Monocyte Count 0.93 k/cumm (0.11-0.7); Absolute Neutrophil Count 8.54 k/cumm (1.2-6.7); Basophils % 0.5; Eosinophils % 2.8; HCT 43.4 % (40.0-50.0); HGB 14.3 g/dL (13.5-17.5); Immature Grans % 0.2; Lymphocytes % 21.5; Mean Corp. HGB Concentration 32.9 g/dL (32.0-36.0); Mean Corpuscular Hemoglobin 30.3 pg (27.0-33.0); Mean Corpuscular Volume 91.9 fL (80-95); Mean Platelet Volume 9.7 fL (8.0-11.0); Monocytes % 7.4; Neutrophils % 67.6; Platelet Count 343 x1000/uL (130-400); RBC 4.72 m/cumm (4.50-6.00); RBC Distribution Width 13.7 % (11.8-14.1); White Blood Cell Count 12.63 k/cumm (4.4-10.8)
== END 2018-10-20 12:03 ==
LOC: NCHCN 11:43
PROVIDERS: PCP Family Medicine; Visit Provider Nurse Practitioner Family
DX: N50.819 Testicular pain, unspecified (principal)
CPT/HCPCS: 85025

== ENCOUNTER 2018-11-02 08:38 | Outpatient (CLI) | payer OTHER, SELFPAY ==
--- NOTE | 2018-11-02 06:00 | DI.RAD_ITS ---
SYMPTOM/DIAGNOSIS: SACROILIAC JOINT DYSFUNCTION, SI JOINT INJECTION C-ARM: Fluoroscopy Time: 38 seconds Fluoroscopy was provided for guidance with pain clinic SI joint injection. Please see procedure note for details.
[2018-11-02 08:48] VITALS: BP 131/79; PULSE 87; RESP 18; TEMP 36.8; O2SAT 97
[2018-11-02] MEDS: Omnipaque 240 MG/ML 50 ML BTL IJ (09:17)
[2018-11-02] MEDS: methylPREDNISolone ACETATE 40 MG/ML VIAL IM (09:18)
--- NOTE | 2018-11-02 09:19 | PDOC.PAIN ---
Pain Clinic Procedure Note Current Active Problems Problem Status Onset Sacroiliac joint dysfunction of both sides Acute INTRA-ARTICULAR SI JOINT INJECTION DAVID JIANG has been referred to the [facility] for intra-articular SI joint injection. COMMENTS: Pre-procedure VAS to the lower low back was 7/10. Patient was interviewed and the medical record reviewed. There were no medical, pharmacologic, radiographic or other structural contraindications to attempting fluoroscopically guided intra-articular SI joint injection. Risks and expected side effects as well as potential benefit of the procedure were reviewed and voiced concerns addressed. The printed consent form was signed and witnessed. Standard time-out procedure was performed. Patient was placed in the prone position on the fluoroscopy table and automated blood pressure cuff and pulse oximeter applied. The skin entry point for approaching bilateral SI joints was identified under the most advantageous fluoroscopic view and marked. Following thorough Chlorhexadine preparation of the skin and draping and 1% lidocaine infiltration of the skin entry point and subcutaneous tissues, a 22 gauge spinal needle was placed under fluoroscopic guidance into bilateral SI joints was identified under the most advantageous fluoroscopic view and marked. Following thorough Chlorhexadine preparation of the skin and draping and 1% lidocaine infiltration of the skin entry point and subcutaneous tissues, a 22 gauge spinal needle was placed under fluoroscopic guidance into bilateral SI joints. Intra-articular placement was confirmed by a clear arthrogram resulting from the injection of 0.25ml Omnipaque 240, 1ml 1% lidocaine, and 40mg Depomedrol were injected intra-articularily with an initial reproduction of a significant component of the usual pain. The needle was removed without difficulty. Vital signs were stable throughout the procedure and were as recorded in the docflowsheet by the nursing staff. If given, dosages of intravenous drugs for anxiolysis and analgesia were documented in MAR. Follow up plans and appointments were discussed with the patient. Post procedure instruction was given as documented in nursing documentation and having met discharge criteria, and was discharged from the [facility]. COMMENTS: His VAS at 5 minutes post-procedure was 7/10. I recommend that he follow up with the [facility] at [facility] [place]. CC: Lon Garduno
[2018-11-02 09:21] VITALS: BP 114/80; PULSE 83; RESP 13; O2SAT 100
--- NOTE | 2018-11-02 09:22 | PDOC.PAIN_ITS ---
Pain Clinic Procedure Note Current Active Problems Problem Status Onset Sacroiliac joint dysfunction of both sides Acute INTRA-ARTICULAR SI JOINT INJECTION DAVID JIANG has been referred to the [facility] for intra- articular SI joint injection. COMMENTS: Pre-procedure VAS to the lower low back was 7/10. Patient was interviewed and the medical record reviewed. There were no medical, pharmacologic, radiographic or other structural contraindications to attempting fluoroscopically guided intra-articular SI joint injection. Risks and expected side effects as well as potential benefit of the procedure were reviewed and voiced concerns addressed. The printed consent form was signed and witnessed. Standard time-out procedure was performed. Patient was placed in the prone position on the fluoroscopy table and automated blood pressure cuff and pulse oximeter applied. The skin entry point for approaching bilateral SI joints was identified under the most advantageous fluoroscopic view and marked. Following thorough Chlorhexadine preparation of the skin and draping and 1% lidocaine infiltration of the skin entry point and subcutaneous tissues, a 22 gauge spinal needle was placed under fluoroscopic guidance into bilateral SI joints was identified under the most advantageous fluoroscopic view and marked. Following thorough Chlorhexadine preparation of the skin and draping and 1% lidocaine infiltration of the skin entry point and subcutaneous tissues, a 22 gauge spinal needle was placed under fluoroscopic guidance into bilateral SI joints. Intra-articular placement was confirmed by a clear arthrogram resulting from the injection of 0.25ml Omnipaque 240, 1ml 1% lidocaine, and 40mg Depomedrol were injected intra-articularily with an initial reproduction of a significant component of the usual pain. The needle was removed without difficulty. Vital signs were stable throughout the procedure and were as recorded in the docflowsheet by the nursing staff. If given, dosages of intravenous drugs for anxiolysis and analgesia were documented in MAR. Follow up plans and appointments were discussed with the patient. Post procedure instruction was given as documented in nursing documentation and having met discharge criteria, and was discharged from the [facility]. COMMENTS: His VAS at 5 minutes post-procedure was 7/10. I recommend that he follow up with the [facility] [place] [facility] [place] CC: Lon Garduno
--- NOTE | 2018-11-02 13:13 | PDOC.PAIN2 ---
History of Present Illness History of Present Illness History of Present Illness: I did speak with the patient's workers compensation nurse case management specialist (Darlin Perez @ ) and the patient today. We discussed today's procedure (bilateral sacroiliac joint injection), which did not give him any relief at 10 minutes post-injection. 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 This might be causing his low back pain and his pain down the lateral right thigh, calf and foot. On previous notes, he did also have weakness to the right EHL muscle. He last had LMBBs without much relief. One option at this point would be a pars interacticularis block to see if the low back pain is coming from this spot. We could also complete a right L5 selective nerve root block to see if the right leg pain is coming from this nerve (which could be pinched from the pars defect/anterolisthesis). I do no believe that he is a surgical candidate and truely his best bet is to improve core and pelvic strength to help stabilize the low back. I did recommend that he try his best to stay active, stay thin, avoid tobacco, and to lift properly. He is going to enter the [facility] at [facility] next month. I did answer all of their questions to their satisfaction. I did spend >15 minutes with the patient and the NCM and 10 minutes of this was in counseling to discuss treatment options and likely pathology. Review of Systems Medications/Allergies Allergies Allergy/AdvReac Type Severity Reaction Status Date / Time codeine Allergy Swelling/Ed Verified 11/02/18 08:46 [From Tylenol-Codeine #3] linda gabapentin AdvReac Intermediate Headaches Unverified 11/02/18 08:46 pregabalin [From Lyrica] AdvReac Intermediate Headaches Unverified 11/02/18 08:46 Medications: Current Medications Dexamethasone Sodium Phosphate () 0 mg IJ DIRECTED CHANELLE Stop: 11/02/18 23:59 Iohexol (Omnipaque 240) 0 ml IJ DIRECTED CHANELLE Stop: 11/02/18 23:59 Last Admin: 11/02/18 09:17 Dose: 2 ml Methylprednisolone Acetate (Depo-Medrol) 0 mg IJ DIRECTED CHANELLE Stop: 11/02/18 23:59 Objective Exam Vitals and I&O: Vital Signs Temperature 36.8 C 11/02/18 08:48 Pulse 83 11/02/18 09:21 Respiratory Rate 13 11/02/18 09:21 Blood Pressure 114/80 11/02/18 09:21 Pulse Oximetry 100 11/02/18 09:21 Oxygen Delivery Method Room Air 11/02/18 09:21 Oxygen Flow Rate 0 11/02/18 09:21 Ambulatory Orders Medication Instructions Recorded omeprazole 20 mg capsule,delayed 20 mg PO DAILY #30 cap 07/08/18 release acetaminophen 500 mg capsule 1,000 mg PO Q6H PRN cap 08/11/18 ibuprofen 600 mg tablet 600 mg PO Q6H PRN tab 08/11/18 Dulera 2 puff IH BID #13 gm 09/12/18 albuterol sulfate 2 puff IH Q4H PRN #8.5 gm 09/24/18 albuterol sulfate 2.5 mg IH Q4H PRN #75 ml 09/25/18
--- NOTE | 2018-11-02 13:23 | PDOC.PAIN2_ITS ---
History of Present Illness History of Present Illness History of Present Illness: I did speak with the patient's workers compensation nurse registered nurse hh case manager (Darlin Perez @ ) and the patient today. We discussed today's procedure (bilateral sacroiliac joint injection), which did not give him any relief at 10 minutes post-injection. 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 This might be causing his low back pain and his pain down the lateral right thigh, calf and foot. On previous notes, he did also have weakness to the right EHL muscle. He last had LMBBs without much relief. One option at this point would be a pars interacticularis block to see if the low back pain is coming from this spot. We could also complete a right L5 selective nerve root block to see if the right leg pain is coming from this nerve (which could be pinched from the pars defect /anterolisthesis). I do no believe that he is a surgical candidate and truely his best bet is to improve core and pelvic strength to help stabilize the low back. I did recommend that he try his best to stay active, stay thin, avoid tobacco, and to lift properly. He is going to enter the Functional [facility] at [facility] next month. I did answer all of their questions to their satisfaction. I did spend >15 minutes with the patient and the NCM and 10 minutes of this was in counseling to discuss treatment options and likely pathology. Review of Systems Medications/Allergies Allergies Allergy/AdvReac Type Severity Reaction Status Date / Time codeine Allergy Swelling/Ed Verified 11/02/18 08:46 [From Tylenol-Codeine #3] linda gabapentin AdvReac Intermediate Headaches Unverified 11/02/18 08:46 pregabalin [From Lyrica] AdvReac Intermediate Headaches Unverified 11/02/18 08:46 Medications: Current Medications Dexamethasone Sodium Phosphate () 0 mg IJ DIRECTED CHANELLE Stop: 11/02/18 23:59 Iohexol (Omnipaque 240) 0 ml IJ DIRECTED CHANELLE Stop: 11/02/18 23:59 Last Admin: 11/02/18 09:17 Dose: 2 ml Methylprednisolone Acetate (Depo-Medrol) 0 mg IJ DIRECTED CHANELLE Stop: 11/02/18 23:59 Objective Exam Vitals and I&O: Vital Signs Temperature 36.8 C 11/02/18 08:48 Pulse 83 11/02/18 09:21 Respiratory Rate 13 11/02/18 09:21 Blood Pressure 114/80 11/02/18 09:21 Pulse Oximetry 100 11/02/18 09:21 Oxygen Delivery Method Room Air 11/02/18 09:21 Oxygen Flow Rate 0 11/02/18 09:21 Ambulatory Orders Medication Instructions Recorded omeprazole 20 mg capsule,delayed 20 mg PO DAILY #30 cap 07/08/18 release acetaminophen 500 mg capsule 1,000 mg PO Q6H PRN cap 08/11/18 ibuprofen 600 mg tablet 600 mg PO Q6H PRN tab 08/11/18 Dulera 2 puff IH BID #13 gm 09/12/18 albuterol sulfate 2 puff IH Q4H PRN #8.5 gm 09/24/18 albuterol sulfate 2.5 mg IH Q4H PRN #75 ml 09/25/18
== END 2018-11-02 08:58 ==
PROVIDERS: PCP Family Medicine; Visit Provider Preventive Medicine Occupational Medicine
DX: M53.3 Sacrococcygeal disorders, not elsewhere classified (principal); M54.5 Low back pain
CPT/HCPCS: 27096; 72200; J1030; Q9967

== ENCOUNTER 2018-11-11 12:04 | Emergency (ER) | payer MEDICAID, SELFPAY ==
[2018-11-11 12:13] VITALS: BP 146/86; RESP 80; TEMP 36.7; O2SAT 99
--- NOTE | 2018-11-11 13:11 | W.ED.GENAD ---
Discharge Plan Disposition Patient Disposition: HOME Condition: Fair Discharge Details Chief Complaint: DentalOral Clinical Impression: Dental abscess Primary Care Provider: Lon Garduno ED Provider: Lona Langley Home Meds and New Rx's Prescriptions: New oxycodone 5 mg capsule 5 mg PO Q4H PRN (Reason: pain) Qty: 5 RF: 0 Continued omeprazole 20 mg capsule,delayed release(DR/EC) 20 mg PO DAILY Qty: 30 RF: 3 ibuprofen 600 mg tablet 600 mg PO Q6H PRNRF: 0 acetaminophen 500 mg capsule 1,000 mg PO Q6H PRNRF: 0 albuterol sulfate 2.5 mg /3 mL (0.083 %) solution for nebulization 2.5 mg IH Q4H PRN (Reason: shortness of breath or wheezing) Qty: 75 RF: 0 Dulera 200-5 mcg/actuation HFA aerosol inhaler 2 puff IH BID Qty: 13 RF: 0 albuterol sulfate 90 mcg/actuation HFA aerosol inhaler 2 puff IH Q4H PRN (Reason: shortness of breath or wheezing) Qty: 8.5 RF: 0 Discharge Instructions Instructions: Dental Abscess (ED) Additional Instructions: Encourage hydration. Tylenol and ibuprofen as needed for discomfort. If this is unsuccessful at alleviating her discomfort, please augment with oxycodone as prescribed. Take this medication only as prescribed and keep medication in a safe place. Please continue clindamycin as prescribed, with the abscess drained likely this will be more successful for you. volunteer services coordinator will touch base with you tomorrow to schedule follow-up promptly with dentist. If you develop fever/chills, increased swelling, eye pain or any new/worsening symptoms please seek care urgently once again Referrals: Lon Garduno [Primary Care Provider] - Discharge Data Discharge Date/Time-TO BE ENTERED AT DEPARTURE: 11/11/18 16:56 Medical Decision Making Patient is a 32-year-old male, driven in by his , with chief complaint of left upper dental pain. He was seen by his primary care and begun on clindamycin. Despite being on clindamycin, x4 doses, he has had increased facial swelling with pain moving up towards her left eye. He reports that he has had to be hospitalized with similar infections in the past that began to affect the periorbital area. Denies any fevers or chills. Is endorsing pain with movement of the eye particularly when looking down. Patient is afebrile and nontoxic-appearing. Did take Tylenol and ibuprofen prior to arrival. On exam, patient appears nontoxic. He has soft tissue swelling across the left cheek moving superiorly. No abnormality is noted in the eye exam. Pupils equal round and reactive with full range of motion. No eye discharge. Skin is not erythematous, no warmth. Intraoral exam is concerning for a dental abscess in the left upper area that is fluctuant. I discussed risk/benefits of drainage with the patient. However, given his history, I would prefer to obtain a CT first to evaluate location. Plan obtain CT, laboratory evaluation give pain medication. Discussed this plan with the patient who is in agreement. Discussed case with radiologist who advised contrasted CT scan of the face CT reviewed by radiologist. No localized abscess, obvious caries. No optic soft tissue abnromliaty. No gross bony destruction. Advised panagraph exam from dentist. Artifact from fillings. Chronic sinus disease, nothing acute. Labs reviewed, signficiant for elevated WBC of 14 Discussed with the patient drainage further. We discussed risks/benefits as well as expected procedural steps. He was understanding and wishes to proceed. Procedure note: Area was first anesthetized with Hurricaine Gel. This sufficiently anesthetized the area. Incision into area of maximal fluctuance was completed with #11 blade. This purulent discharge began to flow, was milked from the area. Patient had significant amount of purulent drainage. Flt improved after procedure. Patient and I discussed continued care for dental infection. Advsed that clindamycin is appropriate choice, he has only been on antibiotic for 24 hours. I advised that with continued use and I&D of abscess his symptoms should continue to improve. With his history of progression of infection historically, I have asked our career technical supervisor to arrange for dental folow up as soon as possible. Advised that without definitive dental care his symptoms are likely to reoccur. He was given strict return precautions. All ofhis questions and cocnerns were addressed, he is in agreement with this plan. HPI General Mode of arrival: ambulatory. Date/Time Provider Initiated Documentation: 11/11/18 13:09. Limitations to Documentation: no limitations. Information obtained by: patient and RN notes reviewed. History of Present Illness 32 year old M presents to the emergency department with the chief complaint of left upper dental pain, described as moderate, with intensity rated at 8. Quality is described as sharp, and is localized to the mouth. Patient proximal (toward left eye). Patient started experiencing this day(s) and it has been constant. No relieving factors improve symptom(s), Eating worsens symptoms . Patient notes denies chest pain, cough, fever/chills, headaches, loss of appetite, nausea/vomiting, rash and shortness of breath. Patient did receive the following treatments prior to arrival, NSAID and other (currently on Clindamycin) Related Data Home Medications Medication Instructions Recorded Confirmed omeprazole 20 mg capsule,delayed 20 mg PO DAILY #30 cap 07/08/18 11/02/18 release acetaminophen 500 mg capsule 1,000 mg PO Q6H PRN cap 08/11/18 11/02/18 ibuprofen 600 mg tablet 600 mg PO Q6H PRN tab 08/11/18 11/02/18 Dulera 2 puff IH BID #13 gm 09/12/18 11/02/18 albuterol sulfate 2 puff IH Q4H PRN #8.5 gm 09/24/18 11/02/18 albuterol sulfate 2.5 mg IH Q4H PRN #75 ml 09/25/18 11/02/18 oxycodone 5 mg PO Q4H PRN #5 cap 11/11/18 Previous Rx's Medication Instructions Recorded omeprazole 20 mg capsule,delayed 20 mg PO DAILY #30 cap 07/08/18 release Dulera 2 puff IH BID #13 gm 09/12/18 albuterol sulfate 2 puff IH Q4H PRN #8.5 gm 09/24/18 albuterol sulfate 2.5 mg IH Q4H PRN #75 ml 09/25/18 oxycodone 5 mg PO Q4H PRN #5 cap 11/11/18 Allergies Allergy/AdvReac Type Severity Reaction Status Date / Time codeine Allergy Swelling/Ed Verified 11/02/18 08:46 [From Tylenol-Codeine #3] linda gabapentin AdvReac Intermediate Headaches Unverified 11/02/18 08:46 pregabalin [From Lyrica] AdvReac Intermediate Headaches Unverified 11/02/18 08:46 General Stated Complaint: DentalOral CHI: 4 Review of Systems Constitutional Reports as per HPI, Denies chills, Denies fatigue, Denies fever(s), Denies headache(s) and Denies poor appetite Eyes Denies change in vision, Denies irritation, Reports eye pain (states that pain radiates up toward the left eye) and Denies photophobia ENT Reports as per HPI, Reports dental pain, Denies dysphagia, Denies dizziness, Denies dry mouth, Denies ear discharge, Denies otalgia, Reports facial pain, Denies headache(s), Denies hoarseness, Denies lip swelling, Denies nasal congestion, Denies odynophagia and Denies sore throat Cardiovascular Reports as per HPI and Denies chest pain Respiratory Reports as per HPI and Denies cough Gastrointestinal Reports as per HPI, Denies dysphagia, Denies nausea, Denies odynophagia and Denies vomiting Integumentary/Breasts Reports as per HPI, Denies erythema, Denies rash and Denies skin pain Neurologic Reports as per HPI, Denies dizziness and Denies headache(s) Endocrine Denies fatigue Allergic/Immunologic Denies lip swelling [facility] Medical History Facial cellulitis (Acute) Asthma (Chronic) Right wrist injury (Resolved) Surgical History S/P wrist surgery (Acute) Social History household members: spouse and children lives independently: Yes current occupational status: employed current occupation: [employer] Smoking/Tobacco Use Status: Never alcohol intake: never substance use type: marijuana Exam Const General: cooperative, healthy appearing, comfortable, no acute distress, well developed and well groomed Nutritional Appearance: average body habitus and well nourished Orientation: alert and awake [facility] Head: normal to inspection, normocephalic and atraumatic Ears: hearing grossly normal bilaterally, external ears normal and TM's normal bilaterally General nose exam: external nose normal and nares normal Face and sinus: normal facial exam, sinuses tender (tenderness with palpation over the left frontal sinus), face asymmetric (swelling of the left cheek), no crepitus, no ecchymosis, no erythema and tenderness Mouth: lip normal, tongue normal, oropharynx abnormals (patient has swelling and fluctuance buccal side #12-14), moist mucous membranes, no audible dysphonia, no drooling, no muffled voice and no trismus Teeth and gingiva: caries Throat: posterior oropharynx normal, tonsils normal and uvula midline Eyes General: appearance normal, both eyes and all related structures Alignment and Position: alignment normal and position normal Periorbital: periorbital findings normal Eyelids: eyelids normal Conjunctivae: conjunctivae normal Pupils: PERRL and normal by confrontation EOM: EOM intact bilaterally Neck Neck: normal visual inspection, full ROM, no lymphadenopathy, supple and no anterior neck swelling Resp Effort & Inspection: normal respiratory effort, able to speak in complete sentences and no respiratory distress Auscultation: clear to auscultation bilaterally, no rales, no rhonchi and no wheezes Cardio Rate: regular rate Rhythm: regular rhythm Heart Sounds: S1 normal and S2 normal Skin General skin exam: no rashes or lesions noted Trauma: no lacerations or abrasions Neuro General: alert and awake Cognition: normal cognition Speech: speech normal Gait: normal gait Psych Appearance: grossly normal and well kempt Mental Status: mental status grossly normal Speech and Movement: speech and movement normal Course Vital Signs Temperature 36.7 C 11/11/18 12:13 Respiratory Rate 80 H 11/11/18 12:13 Blood Pressure 146/86 H 11/11/18 12:13 Pulse Oximetry 99 11/11/18 12:13 Temperature 36.7 C 11/11/18 12:13 Temperature Source Temporal Artery Scan 11/11/18 12:13 Respiratory Rate 80 H 11/11/18 12:13 Respiratory Effort Non-Labored 11/11/18 12:14 Blood Pressure 146/86 H 11/11/18 12:13 Blood Pressure Position Sitting 11/11/18 12:13 Pulse Oximetry 99 11/11/18 12:13 Oxygen Delivery Method Room Air 11/11/18 12:13 Oxygen Flow Rate 0 11/11/18 12:13 Pain Level 8 11/11/18 12:13 Procedures Abscess I/D Site: Face (mouth) Side (if applicable): Left Local Anesthetic: Other Anesthetic (hurricaine gel) Technique: Incised with #11 Blade Amount of fluid expressed (mL): 5 Irrigation: Yes Packing used?: None Complications: Pain
--- NOTE | 2018-11-11 13:14 | DI.CT_ITS ---
SYMPTOMS/DIAGNOSIS: LEFT UPPER DENTAL INFECTION, MOVING UPWARD; H/O EYE INFECTION ASSOCIATED WITH DENTAL INFECTION, H/O CELLULITIS FROM INFECTED TOOTH FACIAL AND SINUS CT: There is moderate mucoperiosteal thickening involving the left maxillary antrum. Also, inflammatory findings are noted in the ethmoid sinuses. There is minimal inflammatory change involving the right maxillary antrum and mild changes involving the left frontal sinus are demonstrated. The sphenoid sinus is essentially unremarkable save for a tiny superior left air cell polyp or retention cyst. There is some generalized soft tissue swelling over the left cheek. No focal mass or abscess is identified. Note is made of considerable artifact generated by the patient's dentition and caries are identified in both the maxillary and mandibular dentition. The intraorbital contents appear intact. SUMMARY: There is evidence of chronic left maxillary and ethmoid sinusitis. Dental caries are identified and there is soft tissue swelling over the left cheek, which would certainly be consistent with cellulitis. No focal mass or specific evidence of an abscess is demonstrated. A dental referral is recommended and further evaluation with a pantograph examination.
--- NOTE | 2018-11-11 13:22 | ED.GENADUL_ITS ---
Discharge Plan Disposition Patient Disposition: HOME Condition: Fair Discharge Details Chief Complaint: DentalOral Clinical Impression: Dental abscess Primary Care Provider: Lon Garduno ED Provider: Lona Langley Home Meds and New Rx's Prescriptions: New oxycodone 5 mg capsule 5 mg PO Q4H PRN (Reason: pain) Qty: 5 RF: 0 Continued omeprazole 20 mg capsule,delayed release(DR/EC) 20 mg PO DAILY Qty: 30 RF: 3 ibuprofen 600 mg tablet 600 mg PO Q6H PRNRF: 0 acetaminophen 500 mg capsule 1,000 mg PO Q6H PRNRF: 0 albuterol sulfate 2.5 mg /3 mL (0.083 %) solution for nebulization 2.5 mg IH Q4H PRN (Reason: shortness of breath or wheezing) Qty: 75 RF: 0 Dulera 200-5 mcg/actuation HFA aerosol inhaler 2 puff IH BID Qty: 13 RF: 0 albuterol sulfate 90 mcg/actuation HFA aerosol inhaler 2 puff IH Q4H PRN (Reason: shortness of breath or wheezing) Qty: 8.5 RF: 0 Discharge Instructions Instructions: Dental Abscess (ED) Additional Instructions: Encourage hydration. Tylenol and ibuprofen as needed for discomfort. If this is unsuccessful at alleviating her discomfort, please augment with oxycodone as prescribed. Take this medication only as prescribed and keep medication in a safe place. Please continue clindamycin as prescribed, with the abscess drained likely this will be more successful for you. implementation project coordinator will touch base with you tomorrow to schedule follow-up promptly with dentist. If you develop fever/chills, increased swelling, eye pain or any new/worsening symptoms please seek care urgently once again Referrals: Lon Garduno [Primary Care Provider] - Discharge Data Discharge Date/Time-TO BE ENTERED AT DEPARTURE: 11/11/18 16:56 Medical Decision Making Patient is a 32-year-old male, driven in by his , with chief complaint of left upper dental pain. He was seen by his primary care and begun on clindamy divya. Despite being on clindamycin, x4 doses, he has had increased facial swelling with pain moving up towards her left eye. He reports that he has had to be hospitalized with similar infections in the past that began to affect the periorbital area. Denies any fevers or chills. Is endorsing pain with movement of the eye particularly when looking down. Patient is afebrile and nontoxic-appearing. Did take Tylenol and ibuprofen prior to arrival. On exam, patient appears nontoxic. He has soft tissue swelling across the left cheek moving superiorly. No abnormality is noted in the eye exam. Pupils equal round and reactive with full range of motion. No eye discharge. Skin is not erythematous, no warmth. Intraoral exam is concerning for a dental abscess in the left upper area that is fluctuant. I discussed risk/benefits of drainage with the patient. However, given his history, I would prefer to obtain a CT first to evaluate location. Plan obtain CT, laboratory evaluation give pain medication. Discussed this plan with the patient who is in agreement. Discussed case with radiologist who advised contrasted CT scan of the face CT reviewed by radiologist. No localized abscess, obvious caries. No optic soft tissue abnromliaty. No gross bony destruction. Advised panagraph exam from dentist. Artifact from fillings. Chronic sinus disease, nothing acute. Labs reviewed, signficiant for elevated WBC of 14 Discussed with the patient drainage further. We discussed risks/benefits as well as expected procedural steps. He was understanding and wishes to proceed. Procedure note: Area was first anesthetized with Hurricaine Gel. This sufficiently anesthetized the area. Incision into area of maximal fluctuance was completed with #11 blade. This purulent discharge began to flow, was milked from the area. Patient had significant amount of purulent drainage. Flt improved after procedure. Patient and I discussed continued care for dental infection. Advsed that clind amycin is appropriate choice, he has only been on antibiotic for 24 hours. I advised that with continued use and I&D of abscess his symptoms should continue to improve. With his history of progression of infection historically, I have asked our rn medicare to arrange for dental folow up as soon as possible. Advised that without definitive dental care his symptoms are likely to reoccur. He was given strict return precautions. All ofhis questions and cocnerns were addressed, he is in agreement with this plan. HPI General Mode of arrival: ambulatory . Date/Time Provider Initiated Documentation: 11/11/18 13:09 . Limitations to Documentation: no limitations . Information obtained by: patient and RN notes reviewed . History of Present Illness 32 year old M presents to the emergency department with the chief complaint of left upper dental pain, described as moderate, with intensity rated at 8. Quality is described as sharp, and is localized to the mouth. Patient proximal (toward left eye). Patient started experiencing this day(s) and it has been constant. No relieving factors improve symptom(s), Eating worsens symptoms . Patient notes denies chest pain, cough, fever/chills, headaches, loss of appetite, nausea/vomiting, rash and shortness of breath. Patient did receive the following treatments prior to arrival, NSAID and other (currently on Clindamycin) Related Data Home Medications Medication Instructions Recorded Confirmed omeprazole 20 mg capsule,delayed 20 mg PO DAILY #30 cap 07/08/18 11/02/18 release acetaminophen 500 mg capsule 1,000 mg PO Q6H PRN cap 08/11/18 11/02/18 ibuprofen 600 mg tablet 600 mg PO Q6H PRN tab 08/11/18 11/02/18 Dulera 2 puff IH BID #13 gm 09/12/18 11/02/18 albuterol sulfate 2 puff IH Q4H PRN #8.5 gm 09/24/18 11/02/18 albuterol sulfate 2.5 mg IH Q4H PRN #75 ml 09/25/18 11/02/18 oxycodone 5 mg PO Q4H PRN #5 cap 11/11/18 Previous Rx's Medication Instructions Recorded omeprazole 20 mg capsule,delayed 20 mg PO DAILY #30 cap 07/08/18 release Dulera 2 puff IH BID #13 gm 09/12/18 albuterol sulfate 2 puff IH Q4H PRN #8.5 gm 09/24/18 albuterol sulfate 2.5 mg IH Q4H PRN #75 ml 09/25/18 oxycodone 5 mg PO Q4H PRN #5 cap 11/11/18 Allergies Allergy/AdvReac Type Severity Reaction Status Date / Time codeine Allergy Swelling/Ed Verified 11/02/18 08:46 [From Tylenol-Codeine #3] linda gabapentin AdvReac Intermediate Headaches Unverified 11/02/18 08:46 pregabalin [From Lyrica] AdvReac Intermediate Headaches Unverified 11/02/18 08:46 General Stated Complaint: DentalOral CHI: 4 Review of Systems Constitutional Reports as per HPI, Denies chills, Denies fatigue, Denies fever(s), Denies headache(s) and Denies poor appetite Eyes Denies change in vision, Denies irritation, Reports eye pain (states that pain radiates up toward the left eye) and Denies photophobia ENT Reports as per HPI, Reports dental pain, Denies dysphagia, Denies dizziness, Denies dry mouth, Denies ear discharge, Denies otalgia, Reports facial pain, Denies headache(s), Denies hoarseness, Denies lip swelling, Denies nasal congestion, Denies odynophagia and Denies sore throat Cardiovascular Reports as per HPI and Denies chest pain Respiratory Reports as per HPI and Denies cough Gastrointestinal Reports as per HPI, Denies dysphagia, Denies nausea, Denies odynophagia and Denies vomiting Integumentary/Breasts Reports as per HPI, Denies erythema, Denies rash and Denies skin pain Neurologic Reports as per HPI, Denies dizziness and Denies headache(s) Endocrine Denies fatigue Allergic/Immunologic Denies lip swelling ON LICENSE OF [facility] Medical History Facial cellulitis (Acute) Asthma (Chronic) Right wrist injury (Resolved) Surgical History S/P wrist surgery (Acute) Social History household members: spouse and children lives independently: Yes current occupational status: employed current occupation: [employer] Smoking/Tobacco Use Status: Never alcohol intake: never substance use type: marijuana Exam Const General: cooperative, healthy appearing, comfortable, no acute distress, well developed and well groomed Nutritional Appearance: average body habitus and well nourished Orientation: alert and awake [facility] Head: normal to inspection, normocephalic and atraumatic Ears: hearing grossly normal bilaterally, external ears normal and TM's normal bilaterally General nose exam: external nose normal and nares normal Face and sinus: normal facial exam, sinuses tender (tenderness with palpation over the left frontal sinus), face asymmetric (swelling of the left cheek), no crepitus, no ecchymosis, no erythema and tenderness Mouth: lip normal, tongue normal, oropharynx abnormals (patient has swelling and fluctuance buccal side #12-14), moist mucous membranes, no audible dysphonia, no drooling, no muffled voice and no trismus Teeth and gingiva: caries Throat: posterior oropharynx normal, tonsils normal and uvula midline Eyes General: appearance normal, both eyes and all related structures Alignment and Position: alignment normal and position normal Periorbital: periorbital findings normal Eyelids: eyelids normal Conjunctivae: conjunctivae normal Pupils: PERRL and normal by confrontation EOM: EOM intact bilaterally Neck Neck: normal visual inspection, full ROM, no lymphadenopathy, supple and no anterior neck swelling Resp Effort & Inspection: normal respiratory effort, able to speak in complete sentences and no respiratory distress Auscultation: clear to auscultation bilaterally, no rales, no rhonchi and no wheezes Cardio Rate: regular rate Rhythm: regular rhythm Heart Sounds: S1 normal and S2 normal Skin General skin exam: no rashes or lesions noted Trauma: no lacerations or abrasions Neuro General: alert and awake Cognition: normal cognition Speech: speech normal Gait: normal gait Psych Appearance: grossly normal and well kempt Mental Status: mental status grossly normal Speech and Movement: speech and movement normal Course Vital Signs Temperature 36.7 C 11/11/18 12:13 Respiratory Rate 80 H 11/11/18 12:13 Blood Pressure 146/86 H 11/11/18 12:13 Pulse Oximetry 99 11/11/18 12:13 Temperature 36.7 C 11/11/18 12:13 Temperature Source Temporal Artery Scan 11/11/18 12:13 Respiratory Rate 80 H 11/11/18 12:13 Respiratory Effort Non-Labored 11/11/18 12:14 Blood Pressure 146/86 H 11/11/18 12:13 Blood Pressure Position Sitting 11/11/18 12:13 Pulse Oximetry 99 11/11/18 12:13 Oxygen Delivery Method Room Air 11/11/18 12:13 Oxygen Flow Rate 0 11/11/18 12:13 Pain Level 8 11/11/18 12:13 Procedures Abscess I/D Site: Face (mouth) Side (if applicable): Left Local Anesthetic: Other Anesthetic (hurricaine gel) Technique: Incised with #11 Blade Amount of fluid expressed (mL): 5 Irrigation: Yes Packing used?: None Complications: Pain
[2018-11-11] MEDS: oxyCODONE 5 MG TAB PO (13:40)
[2018-11-11] MEDS: Normal Saline 1,000 ML 1000 ML IV (13:41)
[2018-11-11 13:47] LABS: Abs Immature Grans 0.07 k/cumm (0.0-0.09); Absolute Eosinophil Count 0.37 k/cumm (0.0-0.7); Absolute Lymphocyte Count 2.34 k/cumm (1.2-3.4); Absolute Monocyte Count 1.53 k/cumm (0.11-0.7); Basophils % 0.6; Eosinophils % 2.6; HCT 45.1 % (40.0-50.0); HGB 14.8 g/dL (13.5-17.5); Immature Grans % 0.5; Lymphocytes % 16.2; Mean Corp. HGB Concentration 32.8 g/dL (32.0-36.0); Mean Corpuscular Hemoglobin 30.5 pg (27.0-33.0); Mean Platelet Volume 9.1 fL (8.0-11.0); Monocytes % 10.6; Neutrophils % 69.5; Platelet Count 337 x1000/uL (130-400); RBC 4.85 m/cumm (4.50-6.00); RBC Distribution Width 14.3 % (11.8-14.1); White Blood Cell Count 14.42 k/cumm (4.4-10.8)
[2018-11-11 13:50] LABS: Absolute Basophil Count 0.09 k/cumm (0.0-0.2); Absolute Neutrophil Count 10.02 k/cumm (1.2-6.7)
[2018-11-11 13:55] LABS: ALT 33 U/L (12-78); AST 16 U/L (15-37); Albumin 4.1 g/dL (3.4-5.0); Alkaline Phosphatase 78 U/L (46-116); Anion Gap 9.1 mmol/L (3-11); BUN 16 mg/dL (7-18); Bilirubin, Total 0.7 mg/dL (0.2-1.0); CO2 28.9 mmol/L (21.0-32.0); CREATININE 0.89 mg/dL (0.70-1.30); Calcium 9.8 mg/dL (8.5-10.1); Chloride 103 mmol/L (98-107); Glucose 84 mg/dL (70-100); Potassium 4.7 mmol/L (3.5-5.1); Sodium 141 mmol/L (136-145); Total Protein 8.5 g/dL (6.4-8.2)
[2018-11-11 14:11] VITALS: PULSE 80; RESP 18
[2018-11-11] MEDS: Omnipaque 350 MG/ML 100 ML BTL IJ (14:11)
--- NOTE | 2018-11-11 14:11 | NUR.NOTE ---
Nursing Note: HR 80 and RR 18, documented RR of 80 was documented in error.
[2018-11-11] MEDS: AMPICILLIN/SULBACTAM 3 GM in Normal Saline 100 ML IVPB (14:31)
[2018-11-11 16:42] VITALS: BP 146/86; PULSE 80; RESP 18; TEMP 36.7; O2SAT 99
--- NOTE | 2018-11-12 09:59 | CMPROGNOTE_ITS ---
Care Management Progress Note 11/12-Lona BRANDON requested assistance with a dental f/u as soon as possible for dental abscess. This CM called [facility] at [phone] and they are closed on Fridays, open Thursday-. Called Mikey and left a voice mail for him to call [facility] on Thursday to schedule appt. Also gave Mikey [facility]'s phone number. Requested that Mikey call this CM back to confirm and also if he needed any assistance with making appt.
== END 2018-11-11 16:56 | disposition home or self-care (01) ==
PROVIDERS: Emergency Provider Physician Assistant; PCP Family Medicine
DX: R68.84 Jaw pain (principal); K04.7 Periapical abscess without sinus; R20.0 Anesthesia of skin
CPT/HCPCS: 36415; 41800; 80053; 96361; 96365; 99285; 70487; 85025; 99284; J0295; J2270; J3490

== ENCOUNTER 2019-03-10 16:24 | Emergency (ER) | payer MEDICAID, SELFPAY ==
[2019-03-10 16:36] VITALS: BP 160/83; PULSE 80; RESP 16; TEMP 38.6; O2SAT 98
--- NOTE | 2019-03-10 16:45 | DI.CT_ITS ---
SYMPTOM/DIAGNOSIS: DENTAL ABSCESS NECK CT: A post contrast exam was performed. Soft tissue swelling is seen around the mandible, greater on the right side. No drainable abscess is identified. There are mildly enlarged reactive cervical lymph nodes. The parotid, submandibular and thyroid glands are unremarkable. There is no vascular stenosis. The epiglottis appears normal. The airway is not narrowed. There are lucencies around several mandibular teeth. There is mild sinus mucosal thickening. The mastoid air cells appear clear. IMPRESSION: Soft tissue swelling around the right mandible, consistent with cellulitis. There is no drainable abscess.
--- NOTE | 2019-03-10 17:12 | W.ED.GENAD ---
Discharge Plan Disposition Patient Disposition: HOME Condition: Stable Discharge Details Chief Complaint: DentalOral Clinical Impression: Dental infection Primary Care Provider: Lon Garduno ED Provider: Hernandez Da Silva Home Meds and New Rx's Prescriptions: New clindamycin HCl 150 mg capsule 450 mg PO TID 7 Days Qty: 63 RF: 0 Continued ibuprofen 600 mg tablet 600 mg PO Q6H PRNRF: 0 acetaminophen 500 mg capsule 1,000 mg PO Q6H PRNRF: 0 albuterol sulfate 2.5 mg /3 mL (0.083 %) solution for nebulization 2.5 mg IH Q4H PRN (Reason: shortness of breath or wheezing) Qty: 75 RF: 0 Dulera 200-5 mcg/actuation HFA aerosol inhaler 2 puff IH BID Qty: 13 RF: 0 albuterol sulfate 90 mcg/actuation HFA aerosol inhaler 2 puff IH Q4H PRN (Reason: shortness of breath or wheezing) Qty: 8.5 RF: 0 Discharge Instructions Instructions: Dental Abscess (ED) Additional Instructions: Return immediately to the emergency department for any new or significant worsening of symptoms, any difficulty breathing, any swelling of your tongue, or any further concerns. Otherwise take your antibiotics as prescribed and follow-up with your dental provider as previously arranged. Given the clindamycin may cause some diarrhea please take a probiotic at least 2 hours after your morning antibiotic dose to help with the symptoms Referrals: Lon Garduno [Primary Care Provider] - (As needed for reassessment or if unable to follow-up with your dental provider) Discharge Data Discharge Date/Time-TO BE ENTERED AT DEPARTURE: 03/10/19 21:39 Medical Decision Making Patient presenting the emergency department with chief complaint of right lower jaw swelling. Patient states that 3 days ago he started having some dental pain and discomfort and yesterday called his dental provider who placed him on amoxicillin for concern of dental abscess which patient has history of. Over the course of the last 18 hours patient has noted increased swelling to his right lower jaw. Patient denies any difficulty breathing or swallowing but does state associated fever. Patient does have significant induration and swelling to the right lower jaw without any specific area of fluctuance that is palpable. Patient has tenderness to tooth #31 otherwise no swelling is noted underneath the tongue or within the tongue, or posterior pharynx. There is not a specific concern for Arie's angina or peritonsillar abscess but patient does state sensation of discomfort traveling into his neck. Given this and sensation and facial swelling to plan on doing CT imaging to evaluate for abscess or significant spread of infection. Pending results patient given Ketorolac and Augmentin. After review of results that do show leukocytosis otherwise nondiagnostic labs, CT imaging showing soft tissue infection without pocketed abscess, patient was reassessed. Patient stated no new or worsening symptoms but he still had significant facial swelling. Bedside ultrasound was utilized also confirmed that there is no pocket of abscess to drain at this time but during further discussion with the patient he does state that he had a dental abscess about a month ago and was placed on amoxicillin at that time. Given this I did decide to give patient IV dose of clindamycin and switch his antibiotic to clindamycin. But I do not feel that patient is having antibiotic failure given that he has been on amoxicillin less than 24 hours given that he was recently on this I do feel beneficial to change his antibiotic. Patient continued to have significant discomfort after receiving oxycodone for pain control. Patient was agreeable to dental block. Patient was injected with 1.5 mL's of 2% lidocaine mixed with 0.5% Marcaine and inferior alveolar block was performed on the right side. Patient had no complications and had appropriate anesthetic relief from this procedure. Patient was given 2 Percocet to go home with for any severe return of pain along with laboratory clindamycin to take tonight and tomorrow morning. Close return precautions were discussed with patient. After discussion of diagnosis and plan of care patient has no further needs, questions, or concerns and states clear understanding to return to the emergency department for any worsening symptoms. HPI General Mode of arrival: ambulatory. Date/Time Provider Initiated Documentation: 03/10/19 16:44. Limitations to Documentation: no limitations. Information obtained by: patient. History of Present Illness 33 year old M presents to the emergency department with the chief complaint of Dental pain, described as severe, with intensity rated at 8. Quality is described as sharp, and is localized to the mouth. Patient started experiencing this day(s) (2) and it has been constant. No relieving factors improve symptom(s), Patient notes no other symptoms.. Patient did receive the following treatments prior to arrival, NSAID Related Data Home Medications Medication Instructions Recorded Confirmed acetaminophen 500 mg capsule 1,000 mg PO Q6H PRN cap 08/11/18 03/10/19 ibuprofen 600 mg tablet 600 mg PO Q6H PRN tab 08/11/18 03/10/19 Dulera 2 puff IH BID #13 gm 09/12/18 03/10/19 albuterol sulfate 2 puff IH Q4H PRN #8.5 gm 09/24/18 03/10/19 albuterol sulfate 2.5 mg IH Q4H PRN #75 ml 09/25/18 03/10/19 clindamycin HCl 450 mg PO TID 7 Days #63 cap 03/10/19 Previous Rx's Medication Instructions Recorded Dulera 2 puff IH BID #13 gm 09/12/18 albuterol sulfate 2 puff IH Q4H PRN #8.5 gm 09/24/18 albuterol sulfate 2.5 mg IH Q4H PRN #75 ml 09/25/18 clindamycin HCl 450 mg PO TID 7 Days #63 cap 03/10/19 Allergies Allergy/AdvReac Type Severity Reaction Status Date / Time codeine Allergy Swelling/Ed Verified 03/10/19 16:40 [From Tylenol-Codeine #3] linda gabapentin AdvReac Intermediate Headaches Unverified 03/10/19 16:40 pregabalin [From Lyrica] AdvReac Intermediate Headaches Unverified 03/10/19 16:40 General Stated Complaint: DentalOral CHI: 3 Review of Systems Constitutional Denies chills and Denies fever(s) ENT Reports as per HPI, Denies change in voice, Reports dental pain, Denies dysphagia, Reports throat swelling and Denies tongue swelling Cardiovascular Denies chest pain and Denies dyspnea Respiratory Denies dyspnea, Denies stridor and Denies wheezing Gastrointestinal Denies abdominal pain, Denies dysphagia, Denies nausea and Denies vomiting Integumentary/Breasts Denies rash Allergic/Immunologic Reports throat swelling, Denies tongue swelling and Denies wheezing PFSH Medical History Facial cellulitis (Acute) Asthma (Chronic) Right wrist injury (Resolved) Surgical History S/P wrist surgery (Acute) Social History Smoking/Tobacco Use Status: Never Alcohol Intake: never Drug use: Daily Substance use type: marijuana Household members: spouse and children current occupation: [employer] What type of physical activity do you participate in: regular exercise Do you feel safe at home: Yes Do you feel safe in your relationship?: Yes Exam Const General: cooperative Orientation: alert, awake and oriented x3 Limitations: mental status not altered [facility] Head: normal to inspection, normocephalic and atraumatic Ears: hearing grossly normal bilaterally, normal mastoids bilaterally and no periauricular adenopathy General nose exam: external nose normal Mouth: oropharynx normal, no drooling, no muffled voice, normal tongue and no trismus Teeth and gingiva: caries, poor dentition and other (Partially fractured tooth #2 with erythema surrounding the base of the tooth) Throat: uvula midline Eyes General: appearance normal, both eyes and all related structures Pupils: PERRL Neck Neck: normal visual inspection, full ROM, no lymphadenopathy, no meningeal signs, trachea midline, supple, no anterior neck swelling and no midline deformity Resp Effort & Inspection: normal respiratory effort and able to speak in complete sentences Auscultation: clear to auscultation bilaterally Cardio Rate: regular rate Rhythm: regular rhythm Course Vital Signs Temperature 38.6 C H 03/10/19 16:36 Pulse 80 03/10/19 16:36 Respiratory Rate 16 03/10/19 16:36 Blood Pressure 160/83 H 03/10/19 16:36 Pulse Oximetry 98 03/10/19 16:36 Temperature 38.6 C H 03/10/19 16:36 Temperature Source Skin 03/10/19 16:36 Pulse 80 03/10/19 16:36 Respiratory Rate 16 03/10/19 16:36 Respiratory Effort Non-Labored 03/10/19 16:39 Blood Pressure 160/83 H 03/10/19 16:36 Blood Pressure Position Sitting 03/10/19 16:36 Pulse Oximetry 98 03/10/19 16:36 Oxygen Delivery Method Room Air 03/10/19 16:36 Oxygen Flow Rate 0 03/10/19 16:36 Pain Level 8 03/10/19 16:36
[2019-03-10 17:18] LABS: Abs Immature Grans 0.07 k/cumm (0.0-0.09); Absolute Basophil Count 0.06 k/cumm (0.0-0.2); Absolute Eosinophil Count 0.41 k/cumm (0.0-0.7); Absolute Lymphocyte Count 3.41 k/cumm (1.2-3.4); Absolute Monocyte Count 1.52 k/cumm (0.11-0.7); Absolute Neutrophil Count 9.69 k/cumm (1.2-6.7); Basophils % 0.4; Eosinophils % 2.7; HCT 44.5 % (40.0-50.0); HGB 14.8 g/dL (13.5-17.5); Immature Grans % 0.5; Lymphocytes % 22.5; Mean Corp. HGB Concentration 33.3 g/dL (32.0-36.0); Mean Corpuscular Hemoglobin 30.5 pg (27.0-33.0); Mean Corpuscular Volume 91.8 fL (80-95); Mean Platelet Volume 9.3 fL (8.0-11.0); Neutrophils % 63.9; Platelet Count 337 x1000/uL (130-400); RBC 4.85 m/cumm (4.50-6.00); RBC Distribution Width 13.8 % (11.8-14.1); White Blood Cell Count 15.16 k/cumm (4.4-10.8)
[2019-03-10] MEDS: Normal Saline 1,000 ML 1000 ML IV (17:22)
[2019-03-10] MEDS: Ketorolac 30 MG/ML VIAL IVP (17:22)
[2019-03-10] MEDS: Amoxicillin 875/Clav. 125 TAB PO (17:22)
[2019-03-10 17:31] LABS: ALT 36 U/L (12-78); AST 16 U/L (15-37); Albumin 4.2 g/dL (3.4-5.0); Alkaline Phosphatase 81 U/L (46-116); Anion Gap 13.5 mmol/L (3-11); BUN 13 mg/dL (7-18); Bilirubin, Total 0.6 mg/dL (0.2-1.0); CO2 25.5 mmol/L (21.0-32.0); CREATININE 0.73 mg/dL (0.70-1.30); Calcium 9.6 mg/dL (8.5-10.1); Chloride 102 mmol/L (98-107); Glucose 86 mg/dL (70-100); Potassium 4.3 mmol/L (3.5-5.1); Sodium 141 mmol/L (136-145); Total Protein 8.3 g/dL (6.4-8.2)
[2019-03-10 17:45] LABS: Diff Comment Diff Reviewed; RBC Morphology Normal
[2019-03-10] MEDS: Omnipaque 350 MG/ML 100 ML BTL IV (17:53)
--- NOTE | 2019-03-10 18:13 | DI.VRAD_ITS ---
EXAM: CT Neck With Contrast EXAM DATE/TIME: 03/10/2019 5:52 PM CLINICAL HISTORY: 33 years old, male; Signs and symptoms; Other: Dental abscess; PT C/O right facial swelling, right lower dental pain TECHNIQUE: Imaging protocol: Axial computed tomography images of the neck with intravenous contrast. Coronal and sagittal reformatted images were created and reviewed. Radiation optimization: All CT scans at this facility use at least one of these dose optimization techniques: automated exposure control; mA and/or kV adjustment per patient size (includes targeted exams where dose is matched to clinical indication); or iterative reconstruction. Contrast material: OMNIPAQUE 350; Contrast volume: 100 ml; Contrast route: IV; COMPARISON: No relevant prior studies available. FINDINGS: Nasopharynx: Normal. Oropharynx: Normal. No significant tonsillar enlargement. Hypopharynx: Normal. Larynx: Normal. Normal epiglottis. Retropharyngeal space: Normal. Submandibular/Parotid glands: Normal. Glands are normal in size. Thyroid: Normal. No enlarged or calcified nodules. Lymph nodes: Reactive right level I and level II enlarged lymph nodes. Trachea: Visualized trachea is unremarkable. Lungs: Normal as visualized. Vasculature: No acute findings. Dental: Multifocal dental caries and periapical lucencies. Bones/joints: Normal. No acute fracture. Soft tissues: Subcutaneous fat stranding and edema involving the right submental and pre-mental spaces, representing cellulitis. IMPRESSION: Subcutaneous fat stranding and edema involving the right submental and pre-mental spaces, representing cellulitis. No abscess. Dictated and Authenticated by: Matteo Callejas MD. Ordering:ALFREDO Ng MD
[2019-03-10] MEDS: oxyCODONE 5 mg/Acetaminophen 325 mg TAB 1 TAB PO (19:20)
[2019-03-10] MEDS: CLINDAMYCIN 600 MG/50 ML BAG 100 MG IVPB (19:21)
[2019-03-10 21:34] VITALS: BP 132/73; PULSE 79; RESP 16; O2SAT 99
== END 2019-03-10 21:39 | disposition home or self-care (01) ==
PROVIDERS: Emergency Provider Nurse Practitioner Family; PCP Family Medicine
DX: K04.7 Periapical abscess without sinus (principal)
CPT/HCPCS: 36415; 64450; 70491; 80053; 96361; 96365; 96375; 99285; 85025; 99284; J1885; J3490